=== PATIENT | female | born 1960 | race Caucasian/White ===

== ENCOUNTER 2023-07-20 15:51 | Inpatient (IN) | payer OTHER, SELFPAY ==
--- NOTE | ~2023-07-20 | XR_ITS ---
EXAMINATION: XR KNEE, LEFT CLINICAL INFORMATION: Knee pain COMPARISON: None available. TECHNIQUE: Four views of the left knee. FINDINGS: No joint effusion, fracture, dislocation or destructive process. There is spurring off the superior and inferior anterior patella. There is mild spurring off the medial femoral condyle. XR/XR knee LT 3V IMPRESSION: Degenerative changes noted but no fracture.
--- NOTE | ~2023-07-20 | XR_ITS ---
EXAMINATION: XR CHEST CLINICAL INFORMATION: Shortness of breath COMPARISON: None available. TECHNIQUE: Frontal view of the chest was obtained. FINDINGS: Poor inspiratory effort. Given AP upright portable technique lungs are considered grossly clear. Heart size borderline with normal caliber pulmonary vessels. XR/XR chest 1V IMPRESSION: No active disease given technical limitations.
--- NOTE | ~2023-07-20 | US_ITS ---
EXAMINATION: US VENOUS ULTRASOUND WITH DOPPLER LOWER EXTREMITY, BILATERAL CLINICAL INFORMATION: Bilateral lower extremity edema COMPARISON: Ultrasound venous Doppler lower extremity bilateral from 07/20/2023 TECHNIQUE: Ultrasound of the deep veins is performed from the hip to the calf with compression sonography and color and pulse Doppler assessment. Spectral analysis with color-flow imaging is performed. Technical limitations. FINDINGS: FINDINGS: Respiratory variation, normal compression and vessel patency are noted throughout the lower extremities. The visualized common femoral vein, femoral vein, profunda femoral vein, popliteal vein and midcalf posterior tibial venous segments show no evidence of deep vein thrombosis bilaterally. Peroneal veins not well visualized bilaterally. There is no Franco's cyst. US/US venous duplex LE BI IMPRESSION: 1. No DVT demonstrated in the bilateral lower extremities. 2. Peroneal veins not well visualized bilaterally.
--- NOTE | ~2023-07-20 | US_ITS ---
EXAMINATION: US VENOUS ULTRASOUND WITH DOPPLER LOWER EXTREMITY, BILATERAL CLINICAL INFORMATION: Bilateral lower extremity pain. COMPARISON: None available. TECHNIQUE: Ultrasound of the deep veins is performed from the hip to the calf with compression sonography and color and pulse Doppler assessment. Spectral analysis with color-flow imaging is performed. FINDINGS: The exam is limited secondary to body habitus and edema. RIGHT: There is normal venous compression and respiratory variation and augmented flow. The visualized common femoral vein, superficial femoral vein, profunda femoral vein, popliteal vein, and the trifurcation region shows no evidence of deep venous thrombosis. There is no significant popliteal fossa cyst. LEFT: There is normal venous compression and respiratory variation and augmented flow. The visualized common femoral vein, superficial femoral vein, profunda femoral vein, popliteal vein, and the trifurcation region shows no evidence of deep venous thrombosis. There is no significant popliteal fossa cyst. If the patient's symptoms persist, followup ultrasound in 5 days 7 days might be of value to exclude proximal propagation from a non-visualized calf vein. US/US venous duplex LE BI IMPRESSION: No DVT demonstrated in the bilateral lower extremity.
[2023-07-20 16:22] VITALS: BP 141/88; BP 146/98; PULSE 79; PULSE 84; RESP 18; TEMP 36.6; O2SAT 98; O2SAT 99; BMI 60.9
--- NOTE | 2023-07-20 16:23 | ECG_ITS ---
Test Reason : LT LEG PAIN Blood Pressure : / mmHG Vent. Rate : 085 BPM Atrial Rate : 085 BPM P-R Int : 168 ms QRS Dur : 090 ms QT Int : 384 ms P-R-T Axes : 038 013 046 degrees QTc Int : 456 ms Normal sinus rhythm Possible Anterior infarct , age undetermined Abnormal ECG No previous ECGs available Referred By: Chris Gutiérrez Electronically Signed By:BASHIR LOZANO MD
--- NOTE | 2023-07-20 16:31 | ED_ITS ---
HPI - General Adult General Chief complaint: Extremity Injury, Lower Stated complaint: severe leg pain, unable to walk,N/V,Weakness Time Seen by Provider: 07/20/23 16:08 Source: patient, EMS and RN notes reviewed Mode of arrival: EMS Limitations: no limitations History of Present Illness HPI narrative: 63-year-old female with past medical history significant for COPD, obesity, depression presents for evaluation of ?depression. ? Patient states that the primary reason for visit to the ER is depression She states that she has had increasing depression for the last 3 months since before She denies any specific inciting incident but describes difficulties dealing with her mother's worsening dementia Patient states that she reports increased fatigue and hopelessness related to her depression She also complains of bilateral knee pain left greater than right for quite some time which seems to be worse over the last 3 days Denies any trauma to the area She reports that her legs seem more swollen than usual She has a history of PE 1 year ago, but denies current anticoagulation use Denies any fevers, chills Related Data Allergies Allergy/AdvReac Type Severity Reaction Status Date / Time morphine [MORPHINE] Allergy Unknown ITCHY Unverified 02/13/20 16:32 Review of Systems 2 Constitutional: Constitutional: Denies chills, Denies fever(s), Denies frequent falls and Reports weakness Eyes: Eyes: Denies blurry vision ENT: Denies sore throat Cardiovascular: Cardiovascular: Denies chest pain and Denies dyspnea Respiratory: Respiratory: Denies cough and Denies dyspnea Gastrointestinal: Gastrointestinal: Denies abdominal pain, Denies nausea and Denies vomiting Musculoskeletal: Musculoskeletal: Denies back pain, Reports arthralgias, Reports joint swelling and Reports limited range of motion Integumentary/Breasts: Skin/Breast: Denies rash Neurologic: Denies frequent falls and Reports weakness Psychiatric: Psychiatric: Reports depression, Reports hopelessness, Reports panic attacks and Denies suicidal ideation PMFSH Social History Social History Smoked in Last 30 Days: No Use of substances other than those prescribed or required for medical reasons: No Advance Directives: Yes Advance Directives Information Provided: No Advance Directives on File: No Patient : No Physical Exam ED Vital Signs: Vital Signs - 24 hr 07/20/23 16:22 07/20/23 21:43 Temperature 98 F Pulse Rate 79 91 Respiratory Rate 18 16 Blood Pressure 141/88 H 134/59 L Pulse Oximetry 98 95 Oxygen Delivery Method Nasal Cannula Nasal Cannula Oxygen Flow Rate 2 BMI result Body Mass Index 60.9 Const Other: Resting comfortably in a supine position. She has significant central obesity General: healthy appearing, comfortable, no acute distress, alert and awake Nutritional Appearance: well nourished and obese Orientation/consciousness: patient oriented x3 HENMT Head: Yes normocephalic and Yes atraumatic Eyes Eyelids: Yes eyelids normal Conjunctivae: conjunctivae normal Sclerae: sclerae normal Corneas: corneas normal Pupils: Equal, round and reactive pupils present EOM: EOMs intact bilaterally Neck Neck: Yes full ROM Resp Effort & Inspection: normal respiratory effort, able to speak in complete sentences, no audible wheezes and not labored Auscultation: clear to auscultation bilaterally Cardio Other: 2+ bilateral lower extremity pitting edema Rate: regular rate Rhythm: regular rhythm GI Inspection: No distended Palpation (GI): Soft to palpation, not firm, nontender, no guarding and not rigid Skin Other: Patient has chronic discoloration of lower extremities bilaterally, no beefy red erythema, no open wounds, no drainage. General skin exam: elasticity normal Neuro General: patient oriented x3 Cranial nerves: Yes Equal, round and reactive pupils present and Yes Bilaterally intact EOM present Cognition (Neuro): normal cognition Extrem Other: Tenderness with manipulation of the left knee without obvious deformity. Course Reevaluation(s) Reevaluation #1: Patient has medically cleared from the leg pain perspective. There is no evidence of DVT. She has arthritis of the knee. She was seen by the care team will be a voluntary inpatient bed search for her depression. She has not suicidal Time: 23:04 Medications Administered Discontinued Medications Generic Name Dose Route Start Last Admin Trade Name Edgarq PRN Reason Stop Dose Admin Acetaminophen 650 mg 07/20/23 21:37 07/20/23 21:41 Acetaminophen 325 Mg Tablet PO 07/20/23 21:38 650 mg ONCE ONE Administration Medical Decision Making Medical Decision Making MDM Narrative: 63-year-old female presents for evaluation of depression as well as acute on chronic left knee pain. She denies any shortness of breath, chest pain, abdominal pain, nausea, vomiting. Will workup her leg pain and leg swelling prior to evaluation my care team. The patient notes that though she has had increasing depression she has not suicidal. She states that her PCP increased 1 of her medications for depression about 1 month ago, but she does not know the name of the medication. Given her history of DVT/PE not currently anticoagulated, we will get ultrasounds of lower extremities to rule out DVT. Will get x-rays of the left knee. Her vital signs are currently stable. No evidence of infectious process. Differential Diagnosis Differential Diagnoses: The differential diagnosis associated with the presentation includes Depression Major depressive disorder Suicidal ideation Leg pain Hopelessness DVT Osteoarthritis CHF Lab Data MDM Lab Attestation statement: I reviewed the patient's lab results. No leukocytosis. The patient has increased hemoglobin hematocrit to 17.4 and 53.3 respectively. Normal platelet count. No significant electrolyte abnormalities. 07/20/23 19:41 07/20/23 19:41 Labs: Lab Results 07/20/23 Range/Units 19:41 WBC 7.6 (4.8-10.8) X10*3/uL RBC 6.19 H (4.20-5.50) X10*6/uL Hgb 17.4 H (12.0-16.0) g/dl Hct 53.3 H (37.0-47.0) % MCV 86.1 (80.0-98.0) fL MCH 28.1 (27.0-33.0) pg MCHC 32.6 (31.0-35.0) g/dl RDW 16.2 H (11.0-16.0) % Plt Count 195 (160-400) X10*3/uL MPV 10.7 (9.4-12.3) fL Immature Gran % (Auto) 0.1 (0.0-0.4) % Neut % (Auto) 45.6 (45-73) % Lymph % (Auto) 42.5 H (20-40) % Placer % (Auto) 8.4 (2-11) % Eos % (Auto) 2.8 (0-4) % Baso % (Auto) 0.6 (0-2) % Lymph # (Auto) 3.3 (1.2-4.9) X10*3/uL Placer # (Auto) 0.7 (0.1-1.2) X10*3/uL Eos # (Auto) 0.2 (0.0-0.4) X10*3/uL Baso # (Auto) 0.1 (0.0-0.2) X10*3/uL Abs Immat Gran (auto) 0.01 (0.00-0.03) X10*3/uL Absolute Neuts (auto) 3.5 (2.0-8.3) x10*3/uL Absolute Nucleated RBC 0.000 (0.0-0.012) X10*3/uL Nucleated RBC % (auto) 0.0 (0.0-0.2) /100WBC Smear Tech's Comments VERIFIED PT 11.0 L (11.1-13.3) SEC INR 0.9 (0.9-1.1) Sodium 143 (135-145) mmol/L Potassium 4.8 (3.3-5.1) mmol/L Chloride 102 (96-108) mmol/L Carbon Dioxide 32 H (22-29) mmol/L Anion Gap 14 (12-20) BUN 12 (9-16) mg/dL Creatinine 0.70 (0.5-1.4) mg/dL Estim Creat Clear Calc 121.8 Estimated GFR > 60 Random Glucose 95 (60-115) mg/dL Calcium 9.5 (8.4-10.2) mg/dL Total Bilirubin 0.9 (0.0-1.0) mg/dL AST 38 H (5-31) U/L ALT 27 (0-31) U/L Alkaline Phosphatase 134 H (39-117) U/L B-Natriuretic Peptide 11 (<100) pg/mL Total Protein 7.2 (6.5-8.0) g/dL Albumin 3.9 (3.5-5.0) g/dL Urine Color Yellow Urine Appearance Clear Urine pH 7.0 (5.0-9.0) Ur Specific [place] 1.010 (1.005-1.025) Urine Protein Negative (Neg-Trace) mg/dL Urine Glucose (UA) Negative (Negative) mg/dL Urine Ketones Negative (Negative) mg/dL Urine Blood Negative (Negative) Urine Nitrite Negative (Negative) Ur Leukocyte Esterase Negative (Negative) Salicylates < 5.0 L (15-30) mg/dL Urine Opiates Screen Not Detected (Not Detect) Urine Fentanyl Screen Not Detected (Not Detect) Acetaminophen 3 (<30) mcg/mL Ur Barbiturates Screen Not Detected (Not Detect) Ur Phencyclidine Scrn Not Detected (Not Detect) Ur Amphetamines Screen Not Detected (Not Detect) U Benzodiazepines Scrn Not Detected (Not Detect) Urine Cocaine Screen Not Detected (Not Detect) U Marijuana (THC) Screen Not Detected (Not Detect) Ethyl Alcohol < 10 mg/dL COVID-19 (SELIN) Negative (Negative) COVID-19 Clin Com See Note Discharge Plan Discharge Clinical Impression: Depression, Arthralgia of knee, left Patient Disposition: Still a Patient
--- NOTE | 2023-07-20 18:44 | PC.NURSE ---
pt off floor to u/s
--- NOTE | 2023-07-20 19:45 | MHC.CARE ---
Evaluation from [facility] received; put in chart. Pt is a voluntary inpatient bedsearch.
[2023-07-20 19:50] LABS: Appearance Urine Clear; Color Urine Yellow; Glucose Urine UA Negative (Negative); Leukocyte Esterase Urine Negative (Negative); Nitrite Urine Negative (Negative); Urine Blood Negative (Negative); Urine Ketones Negative (Negative); Urine Protein Negative (Neg-Trace)
[2023-07-20 19:51] LABS: Basophils Absolute Auto 0.1 X10*3/uL (0.0-0.2); Neutrophils Percent Auto 45.6 % (45-73); PLT CLUMP 1; SCAN SMEAR FLAG 1
[2023-07-20 19:53] LABS: Basophils Percent Auto 0.6 % (0-2); Eosinophils Absolute Auto 0.2 X10*3/uL (0.0-0.4); Eosinophils Percent Auto 2.8 % (0-4); Hematocrit 53.3 % (37.0-47.0); Hemoglobin 17.4 g/dl (12.0-16.0); Imm Gran Abs Auto 0.01 X10*3/uL (0.00-0.03); Imm Gran Pct Auto 0.1 % (0.0-0.4); Lymphocytes Absolute Auto 3.3 X10*3/uL (1.2-4.9); Lymphocytes Percent Auto 42.5 % (20-40); MANUAL DIFF FLAG SCAN; Mean Corpuscular HGB Conc 32.6 g/dl (31.0-35.0); Mean Corpuscular Hemoglobin 28.1 pg (27.0-33.0); Mean Corpuscular Volume 86.1 fL (80.0-98.0); Mean Platelet Volume 10.7 fL (9.4-12.3); Monocytes Absolute Auto 0.7 X10*3/uL (0.1-1.2); Monocytes Percent Auto 8.4 % (2-11); Neutrophils Absolute Auto 3.5 x10*3/uL (2.0-8.3); Red Blood Count 6.19 X10*6/uL (4.20-5.50); Red Cell Distribution Width 16.2 % (11.0-16.0)
[2023-07-20 19:58] LABS: Amphetamine Screen Urine Not Detected (Not Detect); Barbiturates, Urine Not Detected (Not Detect); Benzodiazepines Screen Urine Not Detected (Not Detect); Cannabinoid Screen Urine Not Detected (Not Detect); Cocaine Screen Urine Not Detected (Not Detect); Fentanyl, urine Not Detected (Not Detect); Opiate Screen Urine Not Detected (Not Detect); Phencyclidine Screen Urine Not Detected (Not Detect)
[2023-07-20 19:59] LABS: INTERNATIONAL NORM RATIO 0.9 (0.9-1.1)
[2023-07-20 20:03] LABS: COVID-19 Test Negative (Negative); IDNOW Serial# 55D5AD1C
[2023-07-20 20:09] LABS: Acetaminophen LAB 3 mcg/mL (<30); Alanine Aminotransferase 27 U/L (0-31); Albumin Level 3.9 g/dL (3.5-5.0); Alkaline Phosphatase 134 U/L (39-117); Anion Gap 14 (12-20); Aspartate Amino Transferase 38 U/L (5-31); Bilirubin Total 0.9 mg/dL (0.0-1.0); Blood Urea Nitrogen 12 mg/dL (9-16); Calcium 9.5 mg/dL (8.4-10.2); Carbon Dioxide 32 mmol/L (22-29); Chloride 102 mmol/L (96-108); Creatinine Clr Calc Pharmacy 121.8; Estimated Glomerular Filt Rate > 60; Ethanol < 10 mg/dL; Glucose Random 95 mg/dL (60-115); Platelet Count 195 X10*3/uL (160-400); Potassium 4.8 mmol/L (3.3-5.1); SLIDE REVIEW VERIFIED; Salicylate < 5.0 mg/dL (15-30); Sodium 143 mmol/L (135-145); Total Protein 7.2 g/dL (6.5-8.0); White Blood Count 7.6 X10*3/uL (4.8-10.8)
[2023-07-20 20:28] LABS: B Type Natriuretic Peptide 11 pg/mL (<100)
--- NOTE | 2023-07-20 21:37 | PC.NURSE ---
Spoke with pt's daughter who states she was told pt has a room ready upstairs. I explained to daughter that pt will likely be with us overnight and bed search will continue in the morning. Daughter is agreeable to plan.
[2023-07-20] MEDS: Acetaminophen 325 MG TABLET 650 MG PO (21:41)
[2023-07-20 21:43] VITALS: BP 134/59; PULSE 91; RESP 16; O2SAT 95
--- NOTE | 2023-07-20 22:53 | PC.NURSE ---
Pt assisted to recliner with assist from Marj JEONG. red socks applied prior to transfer, given call light and oxygen. Cell phone in close reach.
--- NOTE | 2023-07-21 00:17 | MHC.EDTECH ---
patient requested ambien and to have purewick reattatched. Patient also reclined in recliner requesting to sleep in recliner. ROMAINE riley
[2023-07-21] MEDS: Mirtazapine 7.5 MG TABLET PO ×2 (00:50→20:36)
[2023-07-21] MEDS: traMADoL HCL 50 MG TABLET PO (00:50)
[2023-07-21] MEDS: Zolpidem Tartrate 5 MG TABLET 10 MG PO ×2 (00:50→20:35)
[2023-07-21] MEDS: Tiotropium Bromide 2.5 mcg 1 PUFF/2.5 MCG MIST.INHAL INHALE (08:04)
[2023-07-21] MEDS: Fluticasone/Vilanterol 200/25 BLST.W.DEV 1 PUFF INHALE (08:04)
[2023-07-21 08:08] VITALS: PULSE 99; RESP 20; O2SAT 98
[2023-07-21 09:19] VITALS: BP 137/79; PULSE 96; RESP 18; TEMP 36.5; O2SAT 98
[2023-07-21 09:23] VITALS: BP 139/64; PULSE 105; RESP 22; TEMP 37.6; O2SAT 94
[2023-07-21] MEDS: Losartan Potassium 50 MG TABLET PO (09:50)
[2023-07-21] MEDS: NaPROXEN 500 MG TABLET PO ×2 (09:50→20:34)
[2023-07-21] MEDS: Montelukast Sodium 10 MG TABLET PO (09:50)
[2023-07-21] MEDS: Famotidine 20 MG TABLET 40 MG PO (09:50)
[2023-07-21] MEDS: LORazepam 0.5 MG TABLET PO ×2 (09:50→20:34)
[2023-07-21] MEDS: DULoxetine HCl 60 MG CAPSULE.DR 120 MG PO (09:51)
--- NOTE | 2023-07-21 09:54 | PC.NURSE ---
this RN resumed care of pt at this time. vss and up to date at this time. pt resides on 2L via NC which is pt's baseline d/t hx of asthma and COPD. no sob/wob noted. pt c/o 12/05 pain in the left knee. pt states pain increases w/ weight bearing/movement. pt pt stating that feels depressed but is unable to pinpoint why. states that it is hard to say and that she feels like she just wants to run away. pt denies SI/HI. medication administered per provider order. respirations even and unlabored. pt sitting upright eating breakfast in recliner. plan of care ongoing at this time. call valero placed within reach.
[2023-07-21] MEDS: Fluticasone Propionate Nasal 16 GM SPRAY 2 SPRAY NOSTRIL-B (13:03)
[2023-07-21 13:05] VITALS: BP 140/80; PULSE 79; RESP 16; TEMP 36.6; O2SAT 99
--- NOTE | 2023-07-21 13:31 | PC.NURSE ---
vss and up to date at this time. pt remains on 2L via NC. resting comfortably on NC in no apparent distress. no sob/wob noted. pt continues to rest in recliner/repositioned to comfort. pt waiting to be admitted as inpatient at this time. plan of care ongoing. call valero placed within reach.
--- NOTE | 2023-07-21 13:56 | PC.NURSE ---
report given to ROMAINE Lopez on M5. RN states that they will retrieve pt from ED shortly.
[2023-07-21 18:00] VITALS: BP 136/75; PULSE 99; RESP 18; TEMP 36.7; O2SAT 94
--- NOTE | 2023-07-21 18:49 | PC.ADMIT ---
Maggie is a 60yr old bi-lingual lithuanian female who presents to from [facility] medical floor for Depression which she reports has been really bad since April. She reports she has had Depression for many years with her last admission to [facility] 7 years ago, never at [facility]. She denies SI/HI or anxiety. She presents in a wheelchair and reports the last time she walked was 5 days ago. She is morbidly obese with DM. She states 7/10 bi lateral knee pain at rest and 10/10 with standing. She states that she takes Dilaudid to help with her pain. RN contacted her pharmacy who didnt have a hx for her of Dilaudid. She reported that she got the script from [facility]. Covering Hospitalist aware. She has had surgery on her left leg although cannot state what kind of surgery or for what and grimaces when you touch her ankles. She has pvd and bi lateral lower extremities are discolored. She has multiple medical issues including COPD on chronic 2L oxygen and needs respiratory support in the form of CPAP/BiPap or AVAPs at night. Her daughter Yuliana is her JAVA SOFTWARE ARCHITECT and takes care of many of her needs and is available to give information that the patient cannot give. The patient also has help from a care team at [facility] for her ADL's. The patient is very pleasant, calm, and cooperative but cannot provide alot of information about her health care history or needs. She does good family and health care support including a pcp, therapist and psychiatrist. She is a Jehovah Witness and has good spiritual support. Maggie reports that her mother has dementia and that her sister is currenty taking care of her mother. They have been on difficult terms and Maggie reports being in the middle much of the time. Maggies brother also has medical problems and Maggie herself has many medical issues she is dealing with. All of this has culminated in her admission here today with overwhelming depression and is open to the experience and getting help.
[2023-07-21] MEDS: Acetaminophen 325 MG TABLET 650 MG PO (20:35)
[2023-07-21] MEDS: Atorvastatin Calcium 40 MG TABLET PO (21:00)
[2023-07-21 21:01] LABS: Glucose, Whole Blood 88 mg/dL (60-115)
[2023-07-22 00:13] LABS: Glucose, Whole Blood 131 mg/dL (60-115)
--- NOTE | 2023-07-22 02:30 | PC.NURSE ---
Patient is admitted to from [facility] for Depression. Patient has multiple co-morbidites including morbid obesity, COPD, Asthma, DM, Fibromyalgia and PVD. She also has a history of cellulitis according to her daughter Yuliana. Patient is on chronic 2L oxygen, reports she is on respiratory support at night but didnt know if it was cpap or bipap. She also reports taking Dilaudid for left knee pain that was reportedly prescribed by [facility]. She states she hasnt walked in 5 days due to her knee pain that is a 7/10 at rest and a 10/10 when she stands on it. Covering hospitalist aware. Accommodations were made in Group room A on for a medical bed because patient cannot tolerate laying flat. Her gait was assessed when patient had to use the bathroom. She is able to stand and ambulate with a walker short distances on 3L oxygen. She ambulated from group room A across the koch to the bathroom with walker and standby assist and was steady on her feet and tolerated it well. She urinated and had a bowel movement. She was requesting to shower but there was no female staff available at the time. Her skin needs to be better assessed for a fungal infection d/t odor. Her blood sugar was 88 an hour after eating and then 133 about 4 hours after eating. She reports a hx of low blood sugar at night and in the morning especially if she doesnt eat a snack before bedtime. Her right lower extremity is more swollen than her left. She reports previous surgery on her left leg although unable to state what was wrong or what procedure she had. She has help at home from [facility] with health aids coming to help her with ADL's. She is currently sleeping and comfortable, no acute events tonight.
[2023-07-22 07:49] LABS: Estimated Average Glucose 143 mg/dL; Hemoglobin A1c % 6.6 % (<6.0)
[2023-07-22 08:01] LABS: Cholesterol 98 mg/dL (<200); HDL Cholesterol 33 mg/dL (>40); LDL Cholesterol Calculated 55 mg/dL (<100); Triglycerides 54 mg/dL (<150)
[2023-07-22 08:19] LABS: Free T4 (Free Thyroxine) 0.77 ng/dL (0.71-1.85); Thyroid Stimulating Hormone 1.64 uIU/mL (0.32-4.0)
[2023-07-22 08:27] VITALS: BP 133/69; PULSE 90; RESP 18; TEMP 36.1; O2SAT 97
[2023-07-22 08:30] LABS: Folate 9.2 ng/mL (> or = 4.0); Vitamin B12 347 pg/mL (200-900)
[2023-07-22] MEDS: Montelukast Sodium 10 MG TABLET PO (08:56)
[2023-07-22] MEDS: Famotidine 20 MG TABLET 40 MG PO (08:56)
[2023-07-22] MEDS: LORazepam 0.5 MG TABLET PO ×2 (08:56→22:38)
[2023-07-22] MEDS: Losartan Potassium 50 MG TABLET PO (08:56)
[2023-07-22] MEDS: NaPROXEN 500 MG TABLET PO ×2 (08:56→22:37)
[2023-07-22] MEDS: DULoxetine HCl 60 MG CAPSULE.DR 120 MG PO (09:52)
[2023-07-22] MEDS: Fluticasone Propionate Nasal 16 GM SPRAY 2 SPRAY NOSTRIL-B (12:40)
[2023-07-22] MEDS: Fluticasone/Vilanterol 200/25 BLST.W.DEV 1 PUFF INHALE (12:40)
[2023-07-22] MEDS: Tiotropium Bromide 2.5 mcg 1 PUFF/2.5 MCG MIST.INHAL INHALE (12:40)
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
[2023-07-22] MEDS: Acetaminophen 325 MG TABLET 650 MG PO ×2 (15:04→22:34)
[2023-07-22] MEDS: polyethylene glycoL 3350 17 GM POWD.PACK PO (15:10)
[2023-07-22 16:00] VITALS: BP 139/63; PULSE 92; TEMP 36.2; O2SAT 96
[2023-07-22 17:12] LABS: Glucose, Whole Blood 142 mg/dL (60-115)
[2023-07-22] MEDS: Zolpidem Tartrate 5 MG TABLET 10 MG PO (22:35)
[2023-07-22] MEDS: Atorvastatin Calcium 40 MG TABLET PO (22:36)
[2023-07-22] MEDS: Mirtazapine 7.5 MG TABLET PO (22:39)
[2023-07-22 23:18] VITALS: PULSE 92; RESP 18; O2SAT 96
[2023-07-23] MEDS: Acetaminophen 325 MG TABLET 650 MG PO ×3 (06:13→23:02)
[2023-07-23 08:00] VITALS: BP 145/63; PULSE 83; RESP 18; TEMP 36.1; O2SAT 97
[2023-07-23] MEDS: Fluticasone/Vilanterol 200/25 BLST.W.DEV 1 PUFF INHALE (09:07)
[2023-07-23] MEDS: Tiotropium Bromide 2.5 mcg 1 PUFF/2.5 MCG MIST.INHAL INHALE (09:07)
[2023-07-23] MEDS: DULoxetine HCl 60 MG CAPSULE.DR 120 MG PO (09:08)
[2023-07-23] MEDS: Fluticasone Propionate Nasal 16 GM SPRAY 2 SPRAY NOSTRIL-B (09:08)
[2023-07-23] MEDS: Montelukast Sodium 10 MG TABLET PO (09:08)
[2023-07-23] MEDS: NaPROXEN 500 MG TABLET PO (09:08)
[2023-07-23] MEDS: Losartan Potassium 50 MG TABLET PO (09:08)
[2023-07-23] MEDS: Famotidine 20 MG TABLET 40 MG PO (09:09)
[2023-07-23] MEDS: LORazepam 0.5 MG TABLET PO ×2 (09:09→23:03)
[2023-07-23] MEDS: bisacodyL 5 MG TABLET.DR 10 MG PO (11:12)
[2023-07-23] MEDS: Capsaicin 0.025% Cream 60 GM TUBE 1 APPL TOPICAL (14:25)
--- NOTE | 2023-07-23 14:52 | P.PNPSI_ITS ---
Subjective Subjective Date of Service: 07/23/23 Reason For Visit: Depression Interim History: Patient seen and discussed. Continues to complain of knee pain. Asked for Dilaudid as she takes it when she is admitted to the hospital. Said she had some at home. On review PDMP Dilaudid not showing up for the last 2 years. Says her mood is showing signs of improvement. In the late afternoon shows RN her left LE is swollen and red below the knee. Reports to RN past history of cellulitis when her leg gets discolored like that. Review of Systems Constitutional: Denies chills, Denies fever(s), Denies frequent falls and Reports weakness Eyes: Denies blurry vision Denies sore throat Cardiovascular: Denies chest pain and Denies dyspnea Respiratory: Denies cough and Denies dyspnea Gastrointestinal: Denies abdominal pain, Denies nausea and Denies vomiting Musculoskeletal: Denies back pain, Reports arthralgias, Reports joint swelling and Reports limited range of motion Skin/Breast: Denies rash Denies frequent falls and Reports weakness Psychiatric: Reports depression, Reports hopelessness, Reports panic attacks and Denies suicidal ideation Mental Status Exam Mental Status Exam Patient Appearance: Well Grooomed (obese, sitting in wheelchair. ) Patient Orientation: Person, Place, Time and Situation Level of Consciousness: Awake, Appropriate and Follows Commands Patient Behavior: Appropriate Mood Description: Calm, Depressed and Sad Affect Description: Calm, Depressed and Sad Patient Cognition Impaired: No Ability to Follow Directions: Excellent Speech Pattern: Clear Memory Description: Intact Diagnostics Vital Signs (24Hr): Vital Signs - 24 hr 07/22/23 16:00 07/22/23 23:18 07/23/23 08:00 Temperature 97.2 F 97 F Pulse Rate 92 83 Respiratory Rate 18 18 Blood Pressure 139/63 145/63 H Pulse Oximetry 96 97 Oxygen Delivery Method Room Air Nasal Cannula Oxygen Flow Rate 2 BMI result Body Mass Index 60.9 Labs 07/20/23 19:41 07/20/23 19:41 Labs: Laboratory Results - last 48 hr 07/21/23 07/21/23 07/22/23 20:55 23:57 07:27 POC Glucose 88 131 H Estimat Average Glucose 143 Hemoglobin A1c % 6.6 H Magnesium 2.0 Triglycerides 54 Cholesterol 98 LDL Cholesterol, Calc 55 HDL Cholesterol 33 L Vitamin B12 347 Folate 9.2 TSH 1.64 Free T4 0.77 07/22/23 17:08 POC Glucose 142 H Estimat Average Glucose Hemoglobin A1c % Magnesium Triglycerides Cholesterol LDL Cholesterol, Calc HDL Cholesterol Vitamin B12 Folate TSH Free T4 Imaging Radiology Impressions: ITS Impressions Chest X-Ray 07/20/23 16:40 IMPRESSION: No active disease given technical limitations. Knee X-Ray 07/20/23 16:40 IMPRESSION: Degenerative changes noted but no fracture. Venous Duplex 07/20/23 18:47 IMPRESSION: No DVT demonstrated in the bilateral lower extremity. Medications Medications Current Medications Acetaminophen (Acetaminophen 325 Mg Tablet) 650 mg PO Q6H PRN PRN Reason: Headache/Pain Mild Scale (1-3) Last Admin: 07/23/23 06:13 Dose: 650 mg Al Hydroxide/Mg Hydroxide (Magnesium Hydrox/Alum Hydrox 30 Ml Oral.Susp) 30 ml PO Q6H PRN PRN Reason: Heartburn/Nausea Albuterol Sulfate (Albuterol Sulfate 90 Mcg 8 Gm Inhaler) 2 puff INHALE Q6H PRN PRN Reason: wheezing Atorvastatin Calcium (Atorvastatin Calcium 40 Mg Tablet) 40 mg PO BEDTIME [facility] Last Admin: 07/22/23 22:36 Dose: 40 mg Bisacodyl (Bisacodyl 5 Mg Tablet.Dr) 10 mg PO DAILY PRN PRN Reason: Constipation Last Admin: 07/23/23 11:12 Dose: 5 mg Capsaicin (Capsaicin 0.025% Cream 60 Gm Tube) 1 appl TOPICAL TID PRN PRN Reason: Pain, Moderate(Pain Scale 4-6) Last Admin: 07/23/23 14:25 Dose: 1 appl Duloxetine HCl (Duloxetine Hcl 60 Mg Capsule.) 120 mg PO DAILY [facility] Last Admin: 07/23/23 09:08 Dose: 120 mg Famotidine (Famotidine 20 Mg Tablet) 40 mg PO DAILY [facility] Last Admin: 07/23/23 09:09 Dose: 40 mg Fluticasone Propionate (Fluticasone Propionate Nasal 16 Gm [place]) 2 spray NOSTRIL-B DAILY [facility] Last Admin: 07/23/23 09:08 Dose: 2 spray Fluticasone/Vilanterol (Fluticasone/Vilanterol 200/25 Blst.W.Dev) 1 puff INHALE RDAILY [facility] Last Admin: 07/23/23 09:07 Dose: 1 puff Hydroxyzine HCl (Hydroxyzine Hcl 25 Mg Tablet) 25 mg PO Q6H PRN PRN Reason: Anxiety Lorazepam (Lorazepam 0.5 Mg Tablet) 0.5 mg PO BID [facility] Last Admin: 07/23/23 09:09 Dose: 0.5 mg Losartan Potassium (Losartan Potassium 50 Mg Tablet) 50 mg PO DAILY [facility]; Protocol Last Admin: 07/23/23 09:08 Dose: 50 mg Magnesium Hydroxide (Milk Of Magnesia 30 Ml Oral.Susp) 30 ml PO DAILY PRN PRN Reason: Constipation Mirtazapine (Mirtazapine 7.5 Mg Tablet) 7.5 mg PO BEDTIME [facility] Last Admin: 07/22/23 22:39 Dose: 7.5 mg Montelukast Sodium (Montelukast Sodium 10 Mg Tablet) 10 mg PO DAILY [facility] Last Admin: 07/23/23 09:08 Dose: 10 mg Naproxen (Naproxen 500 Mg Tablet) 500 mg PO BID [facility] Last Admin: 07/23/23 09:08 Dose: 500 mg Non-Formulary Medication (Semaglutide [Ozempic]) 1 mg SUBCUT QWEEK [facility] Non-Formulary Medication (Milnacipran [Savella]) 50 mg PO BID [facility] Polyethylene Glycol (Polyethylene Glycol 3350 17 Gm Powd.Pack) 17 gm PO DAILY [facility] Last Admin: 07/23/23 09:25 Dose: Not Given Tiotropium [place] (Tiotropium [place] 2.5 Mcg 1 Puff/2.5 Mcg Mist.Inhal) 1 puff INHALE DAILY [facility] Last Admin: 07/23/23 09:07 Dose: 1 puff Trazodone HCl (Trazodone Hcl 50 Mg Tablet) 50 mg PO BEDTIME MRX1 PRN PRN Reason: Insomnia Zolpidem Tartrate (Zolpidem Tartrate 5 Mg Tablet) 10 mg PO BEDTIME [facility] Last Admin: 07/22/23 22:35 Dose: 10 mg Allergies Allergies Allergy/AdvReac Type Severity Reaction Status Date / Time morphine [MORPHINE] Allergy Unknown ITCHY Verified 07/21/23 13:01 Assessment & Plan Assessment & Plan (1) Depression: Status: Acute Code(s): F32.A - Depression, unspecified (2) History of surgery on lower extremity: Status: Acute Code(s): Z98.890 - Other specified postprocedural states (3) Diabetes mellitus, type 2: Status: Acute Code(s): E11.9 - Type 2 diabetes mellitus without complications (4) Asthma: Status: Acute Code(s): J45.909 - Unspecified asthma, uncomplicated (5) Oxygen dependent: Status: Acute Code(s): Z99.81 - Dependence on supplemental oxygen (6) Continuous positive airway pressure dependent: Status: Acute Code(s): Z99.89 - Dependence on other enabling machines and devices (7) COPD (chronic obstructive pulmonary disease): Status: Acute Code(s): J44.9 - Chronic obstructive pulmonary disease, unspecified (8) Arthralgia of knee, left: Status: Acute Code(s): M25.562 - Pain in left knee (9) Obesity: Status: Acute Code(s): E66.9 - Obesity, unspecified Plan - Admit to inpatient psychiatry - CV - Collateral information from family and providers. - Milieu treatment and group therapy. - Medications: No changes in antidepressants for now pending collaterals from family and outside providers. - Social work evaluation. - Disposition planning. Patient reports family were trying to get her into a respite program but need further clarification from family about the nature of the program. 07/23: Collaterals from family. Ask hospitalist to see for left HELDER and discoloration. Reason for continued inpatient stay Substantial Risk for: harm to self, inability to function, rapid decompensation and med/psych decompensation Time Spent With Patient Time: Total time managing care of this patient today ____ minutes.
[2023-07-23] MEDS: Lidocaine 4 % Patch ADH..PATCH 1 PATCH TRANSDERMA (16:22)
[2023-07-23 16:58] VITALS: BP 123/58; PULSE 98; RESP 18; TEMP 36.3; O2SAT 94
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
[2023-07-23] MEDS: Zolpidem Tartrate 5 MG TABLET 10 MG PO (23:02)
[2023-07-23] MEDS: Mirtazapine 7.5 MG TABLET PO (23:03)
[2023-07-23] MEDS: Atorvastatin Calcium 40 MG TABLET PO (23:03)
[2023-07-24] VITALS: PULSE 98; RESP 20; O2SAT 94
[2023-07-24] MEDS: Acetaminophen 325 MG TABLET 650 MG PO ×3 (05:57→23:12)
[2023-07-24 08:30] VITALS: BP 142/65; PULSE 85; RESP 18; TEMP 36.1; O2SAT 94
[2023-07-24] MEDS: Fluticasone Propionate Nasal 16 GM SPRAY 2 SPRAY NOSTRIL-B (09:12)
[2023-07-24] MEDS: Fluticasone/Vilanterol 200/25 BLST.W.DEV 1 PUFF INHALE (09:13)
[2023-07-24] MEDS: Lidocaine 4 % Patch ADH..PATCH 1 PATCH TRANSDERMA (09:13)
[2023-07-24] MEDS: LORazepam 0.5 MG TABLET PO ×2 (09:13→23:09)
[2023-07-24] MEDS: Losartan Potassium 50 MG TABLET PO (09:13)
[2023-07-24] MEDS: DULoxetine HCl 60 MG CAPSULE.DR 120 MG PO (09:13)
[2023-07-24] MEDS: Celecoxib 200 MG CAPSULE PO ×2 (09:13→23:09)
[2023-07-24] MEDS: Tiotropium Bromide 2.5 mcg 1 PUFF/2.5 MCG MIST.INHAL INHALE (09:13)
[2023-07-24] MEDS: Montelukast Sodium 10 MG TABLET PO (09:13)
[2023-07-24] MEDS: Famotidine 20 MG TABLET 40 MG PO (09:14)
[2023-07-24 17:14] VITALS: BP 120/57; PULSE 90; RESP 17; TEMP 36.3; O2SAT 95
--- NOTE | 2023-07-24 17:24 | P.PNPSI_ITS ---
Subjective Subjective Date of Service: 07/24/23 Reason For Visit: Depression Subjective Notes: Conditional Voluntary Healthcare Proxy: Yes Guardianship: No Medical Problems Affecting Mental Status: Yes Interim History: Pt on one to one. She requests an immediate transfer to [facility]. She reports several complaints with care and inconsistency from her plan at her home. She declines treatment for depression at this time. Reports she needs a medical psychiatric unit. Reports concern about BLE criculation and pain in her legs. States she has been here since and has received no treatment. [facility] ER team did not allow her to see a medical MD nor psych MD. States she met with psychiatry on Monday, had no O2 on , no medical bed, just a stretcher . States she believes she was given false information about services. States she was denied Dilaudid (Morphine allergy) and current Tylenol not effective. Reports pain not managed. Reports hx of COVID with 12-14 day in pt stay with readmit, with diminshed respiratory quality, increasing respiratory risk. Care discussed with daughter/PATIENT CARE COORDINATOR, Yuliana. Full med review. Yuliana will bring Trulicity and Ozempic. Yuliana reports pt's legs are sensitive to cellulitis and she believes her skin could crack at any time. Yuliana will assess when she visits [facility]. Concerns have been presented to psychiatric admin team along with pt's request. Pt's legs are not warm, no weeping of fluid. She states that at times when she is in bed they become warm and she becomes anxious about developing infection. She presents with good eye contact, alert, full range of affect, attentive and clear. She declines all intervention except transfer today. Medication Compliance: Yes Side effects from medications: No Attending Groups: No Review of Systems Acute medical concerns: No Medical Review of Systems: unchanged Review of Systems Cardiovascular: Reports dyspnea (post covid at times, has O2) and Reports dyspnea on exertion Respiratory: Reports dyspnea (post covid at times, has O2) and Reports dyspnea on exertion Comments: erythema, chronic venous stasis. No evidence of cellulitis this afternoon. Mental Status Exam Mental Status Exam Patient Appearance: Well Grooomed (obese, sitting in wheelchair. ) Patient Orientation: Person, Place, Time and Situation Level of Consciousness: Awake and Appropriate Patient Behavior: Appropriate, Talkative and Good Eye Contact Mood Description: Calm and Apprehensive Affect Description: Calm and Apprehensive Patient Cognition Impaired: No Ability to Follow Directions: Excellent Speech Pattern: Clear and Spontaneous Speech Memory Description: Intact Hallucinations: None Delusions: Not Present Thought Content: positive for Perseveration, positive for Suicidal Ideation (denies) and positive for Homicidal Ideation (denies) Judgement: Good Diagnostics Vital Signs (24Hr): Vital Signs - 24 hr 07/24/23 00:00 07/24/23 08:30 07/24/23 17:14 Temperature 97.0 F 97.3 F Pulse Rate 85 90 Respiratory Rate 20 18 17 Blood Pressure 142/65 H 120/57 L Pulse Oximetry 94 95 Oxygen Delivery Method Room Air Room Air BMI result Body Mass Index 60.9 Labs 07/20/23 19:41 07/20/23 19:41 Imaging Radiology Impressions: ITS Impressions Chest X-Ray 07/20/23 16:40 IMPRESSION: No active disease given technical limitations. Knee X-Ray 07/20/23 16:40 IMPRESSION: Degenerative changes noted but no fracture. Venous Duplex 07/20/23 18:47 IMPRESSION: No DVT demonstrated in the bilateral lower extremity. Medications Medications Current Medications Acetaminophen (Acetaminophen 325 Mg Tablet) 650 mg PO Q6H PRN PRN Reason: Headache/Pain Mild Scale (1-3) Last Admin: 07/24/23 16:06 Dose: 650 mg Al Hydroxide/Mg Hydroxide (Magnesium Hydrox/Alum Hydrox 30 Ml Oral.Susp) 30 ml PO Q6H PRN PRN Reason: Heartburn/Nausea Albuterol Sulfate (Albuterol Sulfate 90 Mcg 8 Gm Inhaler) 2 puff INHALE Q6H PRN PRN Reason: wheezing Atorvastatin Calcium (Atorvastatin Calcium 40 Mg Tablet) 40 mg PO BEDTIME [facility] Last Admin: 07/23/23 23:03 Dose: 40 mg Bisacodyl (Bisacodyl 5 Mg Tablet.) 10 mg PO DAILY PRN PRN Reason: Constipation Last Admin: 07/23/23 11:12 Dose: 5 mg Capsaicin (Capsaicin 0.025% Cream 60 Gm Tube) 1 appl TOPICAL TID PRN PRN Reason: Pain, Moderate(Pain Scale 4-6) Last Admin: 07/23/23 14:25 Dose: 1 appl Celecoxib (Celecoxib 200 Mg Capsule) 200 mg PO BID [facility] Last Admin: 07/24/23 09:13 Dose: 200 mg Duloxetine HCl (Duloxetine Hcl 60 Mg Capsule.) 120 mg PO DAILY [facility] Last Admin: 07/24/23 09:13 Dose: 120 mg Famotidine (Famotidine 20 Mg Tablet) 40 mg PO DAILY [facility] Last Admin: 07/24/23 09:14 Dose: 40 mg Fluticasone Propionate (Fluticasone Propionate Nasal 16 Gm [place]) 2 spray NOSTRIL-B DAILY [facility] Last Admin: 07/24/23 09:12 Dose: 2 spray Fluticasone/Vilanterol (Fluticasone/Vilanterol 200/25 Blst.W.Dev) 1 puff INHALE RDAILY [facility] Last Admin: 07/24/23 09:13 Dose: 1 puff Hydroxyzine HCl (Hydroxyzine Hcl 25 Mg Tablet) 25 mg PO Q6H PRN PRN Reason: Anxiety Lidocaine (Lidocaine 4 % Patch Adh..Patch) 1 patch TRANSDERMA DAILY PRN; Protocol PRN Reason: Pain, Moderate(Pain Scale 4-6) Last Admin: 07/24/23 09:13 Dose: 1 patch Lorazepam (Lorazepam 0.5 Mg Tablet) 0.5 mg PO BID [facility] Last Admin: 07/24/23 09:13 Dose: 0.5 mg Losartan Potassium (Losartan Potassium 50 Mg Tablet) 50 mg PO DAILY [facility]; Protocol Last Admin: 07/24/23 09:13 Dose: 50 mg Magnesium Hydroxide (Milk Of Magnesia 30 Ml Oral.Susp) 30 ml PO DAILY PRN PRN Reason: Constipation Mirtazapine (Mirtazapine 7.5 Mg Tablet) 7.5 mg PO BEDTIME [facility] Last Admin: 07/23/23 23:03 Dose: 7.5 mg Montelukast Sodium (Montelukast Sodium 10 Mg Tablet) 10 mg PO DAILY [facility] Last Admin: 07/24/23 09:13 Dose: 10 mg Non-Formulary Medication (Semaglutide [Ozempic]) 1 mg SUBCUT QWEEK [facility] Non-Formulary Medication (Milnacipran [Savella]) 50 mg PO BID [facility] Polyethylene Glycol (Polyethylene Glycol 3350 17 Gm Powd.Pack) 17 gm PO DAILY [facility] Last Admin: 07/24/23 09:22 Dose: Not Given Tiotropium Trezevant (Tiotropium Trezevant 2.5 Mcg 1 Puff/2.5 Mcg Mist.Inhal) 1 puff INHALE DAILY [facility] Last Admin: 07/24/23 09:13 Dose: 1 puff Trazodone HCl (Trazodone Hcl 50 Mg Tablet) 50 mg PO BEDTIME MRX1 PRN PRN Reason: Insomnia Zolpidem Tartrate (Zolpidem Tartrate 5 Mg Tablet) 10 mg PO BEDTIME [facility] Last Admin: 07/23/23 23:02 Dose: 10 mg Allergies Allergies Allergy/AdvReac Type Severity Reaction Status Date / Time morphine [MORPHINE] Allergy Unknown ITCHY Verified 07/21/23 13:01 Assessment & Plan Assessment & Plan (1) Depression: Status: Acute Code(s): F32.A - Depression, unspecified Plan - Admit to inpatient psychiatry - CV - Collateral information from family and providers. - Milieu treatment and group therapy. - Medications: No changes in antidepressants for now pending collaterals from family and outside providers. - Social work evaluation. - Disposition planning. Patient reports family were trying to get her into a respite program but need further clarification from family about the nature of the program. 07/23: Collaterals from family. Ask hospitalist to see for left HELDER and discoloration. 07/24: Pt declines psychiatric treatment at this time. Requests [facility] transfer. Administrative team notified. Patient educated on: medication risk/benefits, therapeutic strategies and medical condition Informed Consent: understands and further education needed Reason for continued inpatient stay Substantial Risk for: rapid decompensation and med/psych decompensation Time Spent With Patient Time: Total time managing care of this patient today ____ minutes.
[2023-07-24 22:00] VITALS: BP 120/57; PULSE 90; RESP 18; TEMP 36.3; O2SAT 95
[2023-07-24 22:23] LABS: Glucose, Whole Blood 120 mg/dL (60-115)
[2023-07-24] MEDS: Atorvastatin Calcium 40 MG TABLET PO (23:09)
[2023-07-24] MEDS: Mirtazapine 7.5 MG TABLET PO (23:09)
[2023-07-24] MEDS: Zolpidem Tartrate 5 MG TABLET 10 MG PO (23:09)
[2023-07-25 08:01] LABS: Glucose, Whole Blood 96 mg/dL (60-115)
[2023-07-25] MEDS: Fluticasone Propionate Nasal 16 GM SPRAY 2 SPRAY NOSTRIL-B (08:33)
[2023-07-25] MEDS: Tiotropium Bromide 2.5 mcg 1 PUFF/2.5 MCG MIST.INHAL INHALE (08:33)
[2023-07-25] MEDS: Fluticasone/Vilanterol 200/25 BLST.W.DEV 1 PUFF INHALE (08:33)
[2023-07-25] MEDS: LORazepam 0.5 MG TABLET PO ×2 (08:36→22:47)
[2023-07-25] MEDS: Losartan Potassium 50 MG TABLET PO (08:36)
[2023-07-25] MEDS: Montelukast Sodium 10 MG TABLET PO (08:36)
[2023-07-25] MEDS: Celecoxib 200 MG CAPSULE PO ×3 (08:36→22:47)
[2023-07-25 08:39] VITALS: BP 137/65; PULSE 83; RESP 18; TEMP 36.2; O2SAT 92
[2023-07-25] MEDS: Famotidine 20 MG TABLET 40 MG PO (08:49)
--- NOTE | 2023-07-25 09:55 | HO.PSYCHPN ---
Subjective Subjective Date of Service: 07/25/23 Reason For Visit: Depression Subjective Notes: Conditional Voluntary Healthcare Proxy: No Guardianship: No Medical Problems Affecting Mental Status: No Interim History: Pt, family, and child care development specialist Mary Anne continue to request transfer to [facility]. Pt reports not being comfortable with medical care, being promised services in the ER which were not received and being unsatisfied with not being admitted to medicine with psychiatric consult. Also not satisfied with pain mgt. regime. Request faxed to Dr. Levy of [facility] [phone] per recommendation of administrative team requesting transfer. Pt continues to decline psychiatric medication interventions at this time. Discussed possible Lamictal trial to address mood, pain. Concern expressed to pt regarding Cymbalta/Savella/Mirtazapine load and risk for Serotonin Syndrome. Cymbalta decreased to 60 mg daily. Messages left for psychiatrist, Dr. Hudson [phone], Therapist Lennie [phone] and PCP at [facility], [facility] [phone]. Discussed meds with [facility], they will send med list on 07/26. Care reviewed with daughter x 2 via phone. Pt remains on one to one. Medication Compliance: Yes Side effects from medications: No Attending Groups: No Review of Systems Acute medical concerns: Yes COPD, Obesity, OA, CHF, PARAG, DVT Hx, PE Hx. Arthritis, DM, Asthma, O2 Dependence, Chronic Venous Stasis Medical Review of Systems: unchanged Review of Systems Review of Systems Knee pain, OA, Mental Status Exam Mental Status Exam Patient Appearance: Appropriate Patient Orientation: Person, Place, Time and Situation Level of Consciousness: Alert Patient Behavior: Talkative, Cooperative, Anxious, Fearful, Fatigued and Good Eye Contact Mood Description: Depressed and Angry Affect Description: Flat Patient Cognition Impaired: No Ability to Follow Directions: Good Speech Pattern: Spontaneous Speech Memory Description: Episodic Impaired Hallucinations: None Delusions: Not Present Thought Process: Rumination Thought Content: positive for Perseveration and positive for Suicidal Ideation (denies) Depressive Symptoms: Increased Anxiety Judgement: Good Diagnostics Vital Signs (24Hr): Vital Signs - 24 hr 07/24/23 17:14 07/24/23 22:00 07/25/23 08:39 Temperature 97.3 F 97.3 F 97.2 F Pulse Rate 90 90 83 Respiratory Rate 17 18 18 Blood Pressure 120/57 L 120/57 L 137/65 Pulse Oximetry 95 95 92 Oxygen Delivery Method Nasal Cannula Room Air Room Air Oxygen Flow Rate 2 BMI result Body Mass Index 60.9 Labs 07/20/23 19:41 07/20/23 19:41 Labs: Laboratory Results - last 48 hr 07/24/23 07/25/23 22:18 07:58 POC Glucose 120 H 96 Imaging Radiology Impressions: ITS Impressions Chest X-Ray 07/20/23 16:40 IMPRESSION: No active disease given technical limitations. Knee X-Ray 07/20/23 16:40 IMPRESSION: Degenerative changes noted but no fracture. Venous Duplex 07/20/23 18:47 IMPRESSION: No DVT demonstrated in the bilateral lower extremity. Medications Medications Current Medications Acetaminophen (Acetaminophen 325 Mg Tablet) 650 mg PO Q6H PRN PRN Reason: Headache/Pain Mild Scale (1-3) Last Admin: 07/24/23 23:12 Dose: 650 mg Al Hydroxide/Mg Hydroxide (Magnesium Hydrox/Alum Hydrox 30 Ml Oral.Susp) 30 ml PO Q6H PRN PRN Reason: Heartburn/Nausea Albuterol Sulfate (Albuterol Sulfate 90 Mcg 8 Gm Inhaler) 2 puff INHALE Q6H PRN PRN Reason: wheezing Atorvastatin Calcium (Atorvastatin Calcium 40 Mg Tablet) 40 mg PO BEDTIME [facility] Last Admin: 07/24/23 23:09 Dose: 40 mg Bisacodyl (Bisacodyl 5 Mg Tablet.) 10 mg PO DAILY PRN PRN Reason: Constipation Last Admin: 07/23/23 11:12 Dose: 5 mg Capsaicin (Capsaicin 0.025% Cream 60 Gm Tube) 1 appl TOPICAL TID PRN PRN Reason: Pain, Moderate(Pain Scale 4-6) Last Admin: 07/23/23 14:25 Dose: 1 appl Celecoxib (Celecoxib 200 Mg Capsule) 200 mg PO BID [facility] Last Admin: 07/25/23 08:36 Dose: 200 mg Duloxetine HCl (Duloxetine Hcl 60 Mg Capsule.) 120 mg PO DAILY [facility] Last Admin: 07/25/23 09:26 Dose: Not Given Famotidine (Famotidine 20 Mg Tablet) 40 mg PO DAILY [facility] Last Admin: 07/25/23 08:49 Dose: 40 mg Fluticasone Propionate (Fluticasone Propionate Nasal 16 Gm [place]) 2 spray NOSTRIL-B DAILY [facility] Last Admin: 07/25/23 08:33 Dose: 2 spray Fluticasone/Vilanterol (Fluticasone/Vilanterol 200/25 Blst.W.Dev) 1 puff INHALE RDAILY [facility] Last Admin: 07/25/23 08:33 Dose: 1 puff Hydroxyzine HCl (Hydroxyzine Hcl 25 Mg Tablet) 25 mg PO Q6H PRN PRN Reason: Anxiety Lidocaine (Lidocaine 4 % Patch Adh..Patch) 1 patch TRANSDERMA DAILY PRN; Protocol PRN Reason: Pain, Moderate(Pain Scale 4-6) Last Admin: 07/24/23 09:13 Dose: 1 patch Lorazepam (Lorazepam 0.5 Mg Tablet) 0.5 mg PO BID [facility] Last Admin: 07/25/23 08:36 Dose: 0.5 mg Losartan Potassium (Losartan Potassium 50 Mg Tablet) 50 mg PO DAILY [facility]; Protocol Last Admin: 07/25/23 08:36 Dose: 50 mg Magnesium Hydroxide (Milk Of Magnesia 30 Ml Oral.Susp) 30 ml PO DAILY PRN PRN Reason: Constipation Mirtazapine (Mirtazapine 7.5 Mg Tablet) 7.5 mg PO BEDTIME [facility] Last Admin: 07/24/23 23:09 Dose: 7.5 mg Montelukast Sodium (Montelukast Sodium 10 Mg Tablet) 10 mg PO DAILY [facility] Last Admin: 07/25/23 08:36 Dose: 10 mg Non-Formulary Medication (Semaglutide [Ozempic]) 1 mg SUBCUT QWEEK [facility] Patient Own ( Trulicity 4.5 Mg/0.5 Ml 0.5 Ml) 0.5 ml SUBCUT Q7D [facility] Last Admin: 07/25/23 08:46 Dose: 0.5 ml Pt Own Med (Savella (50 Mg)) 50 mg PO BID [facility] Last Admin: 07/25/23 08:45 Dose: 50 mg Polyethylene Glycol (Polyethylene Glycol 3350 17 Gm Powd.Pack) 17 gm PO DAILY [facility] Last Admin: 07/25/23 08:56 Dose: Not Given Tiotropium [place] (Tiotropium [place] 2.5 Mcg 1 Puff/2.5 Mcg Mist.Inhal) 1 puff INHALE DAILY [facility] Last Admin: 07/25/23 08:33 Dose: 1 puff Trazodone HCl (Trazodone Hcl 50 Mg Tablet) 50 mg PO BEDTIME MRX1 PRN PRN Reason: Insomnia Zolpidem Tartrate (Zolpidem Tartrate 5 Mg Tablet) 10 mg PO BEDTIME [facility] Last Admin: 07/24/23 23:09 Dose: 10 mg Allergies Allergies Allergy/AdvReac Type Severity Reaction Status Date / Time morphine [MORPHINE] Allergy Unknown ITCHY Verified 07/21/23 13:01 Assessment & Plan Assessment & Plan (1) Depression: Status: Acute Code(s): F32.A - Depression, unspecified Plan - Admit to inpatient psychiatry - CV - Collateral information from family and providers. - Milieu treatment and group therapy. - Medications: No changes in antidepressants for now pending collaterals from family and outside providers. - Social work evaluation. - Disposition planning. Patient reports family were trying to get her into a respite program but need further clarification from family about the nature of the program. 07/23: Collaterals from family. Ask hospitalist to see for left HELDER and discoloration. 07/24: Pt declines psychiatric treatment at this time. Requests [facility] transfer. Administrative team notified. 07/25: Continues to decline psychiatric intervention. Collateral contacts initiated with PCP, Psychiatrist, Therapist. Discussed with daughter. Application sent to [facility] for consideration. Patient educated on: therapeutic strategies Informed Consent: understands Reason for continued inpatient stay Substantial Risk for: rapid decompensation Time Spent With Patient Time: Total time managing care of this patient today ____ minutes.
--- NOTE | 2023-07-25 11:44 | P.CONHOSP_ITS ---
History of Present Illness Data of Consult Service Date: 07/25/23 Requesting physician: Giselle Ram Primary Care Provider: curry RUSHING Reason for consult: medical H&P 63 year old female with history of htn, uncontrolled type 2 diabetes, gerd/gastritis, depression, unspecified psychosis, hld, oa, ckd stage 3, tobacco dependence admitted to geriatric psychiatry [place] [facility] with consult placed to hospitalist service for medical H&P. Review of Systems 2 Review of Systems: General: No fevers, malaise, unintentional weight loss HEENT: No blurred vision, diplopia. No sore throat, nasal congestion, rhinorrhea, sinus pain, ear pain Cardiovascular: No chest pain, palpitations, or leg edema Respiratory: No shortness of breath, wheezing, cough GI: No abdominal pain, nausea, vomiting, diarrhea, constipation, melena, hematochezia : No dysuria, hematuria, increased urinary frequency, decreased urinary output MSK: No myalgia, back pain Neuro: No headaches, weakness, paresthesias Skin: No rashes or lesions FOR[facility]LY [facility] Medical History (Updated 07/22/23 @ 19:47 by Henok Wetzel MD) Arthralgia of knee, left Depression Oxygen dependent Continuous positive airway pressure dependent Asthma COPD (chronic obstructive pulmonary disease) Peripheral vascular disease Hyperglycemia Diabetes mellitus, type 2 Surgical History (Updated 07/22/23 @ 19:47 by Henok Wetzel MD) History of surgery on lower extremity Social History Household Members: None Housing: House Do you presently have visiting nurse or other home services: [facility] Patient Tobacco Use Status: Never used Tobacco Smoked in Last 30 Days: No e-Cigarette/Vaping Use: Never Used Patient Interested in Nicotine Replacement: No Second Hand Smoke Exposure: No Use of substances other than those prescribed or required for medical reasons: No Currently Displaying Signs/Symptoms of Drug Intoxication Withdrawal: No Any prior treatment program specific to substance use: No Have you been hit, kicked, punched, or otherwise hurt by someone within the past year? If so, by whom?: No Do you feel safe in your current relationship?: No Is there a partner from a previous relationship who is making you feel unsafe now?: No Are you made to feel afraid or neglected: No [facility] Practices: Jehovah Witness Advance Directives: Yes Advance Directives Information Provided: No Advance Directives on File: No Do you have thoughts of harming others: None Do you have a plan to hurt others: No Plan Recently lost weight without trying: No Eating poorly because of decreased appetite: No Nutrition Risks: No Nutritional Risk Patient : No : No Poor oral hygiene: No Sexual orientation: Straight/Heterosexual Meds Allergies Allergy/AdvReac Type Severity Reaction Status Date / Time morphine [MORPHINE] Allergy Unknown ITCHY Verified 07/21/23 13:01 Active Medications: Current Medications Acetaminophen (Acetaminophen 325 Mg Tablet) 650 mg PO Q6H PRN PRN Reason: Headache/Pain Mild Scale (1-3) Last Admin: 07/24/23 23:12 Dose: 650 mg Al Hydroxide/Mg Hydroxide (Magnesium Hydrox/Alum Hydrox 30 Ml Oral.Susp) 30 ml PO Q6H PRN PRN Reason: Heartburn/Nausea Albuterol Sulfate (Albuterol Sulfate 90 Mcg 8 Gm Inhaler) 2 puff INHALE Q6H PRN PRN Reason: wheezing Atorvastatin Calcium (Atorvastatin Calcium 40 Mg Tablet) 40 mg PO BEDTIME [facility] Last Admin: 07/24/23 23:09 Dose: 40 mg Bisacodyl (Bisacodyl 5 Mg Tablet.Dr) 10 mg PO DAILY PRN PRN Reason: Constipation Last Admin: 07/23/23 11:12 Dose: 5 mg Capsaicin (Capsaicin 0.025% Cream 60 Gm Tube) 1 appl TOPICAL TID PRN PRN Reason: Pain, Moderate(Pain Scale 4-6) Last Admin: 07/23/23 14:25 Dose: 1 appl Celecoxib (Celecoxib 200 Mg Capsule) 200 mg PO BID [facility] Last Admin: 07/25/23 08:36 Dose: 200 mg Famotidine (Famotidine 20 Mg Tablet) 40 mg PO DAILY [facility] Last Admin: 07/25/23 08:49 Dose: 40 mg Fluticasone Propionate (Fluticasone Propionate Nasal 16 Gm [place]) 2 spray NOSTRIL-B DAILY [facility] Last Admin: 07/25/23 08:33 Dose: 2 spray Fluticasone/Vilanterol (Fluticasone/Vilanterol 200/25 Blst.W.Dev) 1 puff INHALE RDAILY [facility] Last Admin: 07/25/23 08:33 Dose: 1 puff Hydroxyzine HCl (Hydroxyzine Hcl 25 Mg Tablet) 25 mg PO Q6H PRN PRN Reason: Anxiety Lidocaine (Lidocaine 4 % Patch Adh..Patch) 1 patch TRANSDERMA DAILY PRN; Protocol PRN Reason: Pain, Moderate(Pain Scale 4-6) Last Admin: 07/24/23 09:13 Dose: 1 patch Lorazepam (Lorazepam 0.5 Mg Tablet) 0.5 mg PO BID [facility] Last Admin: 07/25/23 08:36 Dose: 0.5 mg Losartan Potassium (Losartan Potassium 50 Mg Tablet) 50 mg PO DAILY [facility]; Protocol Last Admin: 07/25/23 08:36 Dose: 50 mg Magnesium Hydroxide (Milk Of Magnesia 30 Ml Oral.Susp) 30 ml PO DAILY PRN PRN Reason: Constipation Mirtazapine (Mirtazapine 7.5 Mg Tablet) 7.5 mg PO BEDTIME [facility] Last Admin: 07/24/23 23:09 Dose: 7.5 mg Montelukast Sodium (Montelukast Sodium 10 Mg Tablet) 10 mg PO DAILY [facility] Last Admin: 07/25/23 08:36 Dose: 10 mg Non-Formulary Medication (Semaglutide [Ozempic]) 1 mg SUBCUT QWEEK [facility] Patient Own ( Trulicity 4.5 Mg/0.5 Ml 0.5 Ml) 0.5 ml SUBCUT Q7D [facility] Last Admin: 07/25/23 08:46 Dose: 0.5 ml Pt Own Med (Savella (50 Mg)) 50 mg PO BID [facility] Last Admin: 07/25/23 08:45 Dose: 50 mg Polyethylene Glycol (Polyethylene Glycol 3350 17 Gm Powd.Pack) 17 gm PO DAILY [facility] Last Admin: 07/25/23 08:56 Dose: Not Given Tiotropium [place] (Tiotropium [place] 2.5 Mcg 1 Puff/2.5 Mcg Mist.Inhal) 1 puff INHALE DAILY [facility] Last Admin: 07/25/23 08:33 Dose: 1 puff Trazodone HCl (Trazodone Hcl 50 Mg Tablet) 50 mg PO BEDTIME MRX1 PRN PRN Reason: Insomnia Zolpidem Tartrate (Zolpidem Tartrate 5 Mg Tablet) 10 mg PO BEDTIME [facility] Last Admin: 07/24/23 23:09 Dose: 10 mg Home Medications Medication Instructions Recorded Confirmed Last Taken Type acetaminophen 500 mg tablet 500 mg PO 07/21/23 07/20/23 History albuterol sulfate 2.5 mg/3 mL 2.5 mg inhalation 07/21/23 07/20/23 History (0.083 %) solution for nebulization albuterol sulfate 90 mcg/actuation 2 puff inhalation Q6H PRN wheezing 07/21/23 07/21/23 07/20/23 History aerosol inhaler (Ventolin HFA) atorvastatin 40 mg tablet 40 mg PO QPM 07/21/23 07/21/23 07/20/23 History diclofenac sodium 1 % topical gel 1 ea topical 07/21/23 07/20/23 History dulaglutide 4.5 mg/0.5 mL mg subcut 07/21/23 07/20/23 History subcutaneous pen injector (Trulicity) duloxetine 60 mg capsule,delayed 120 mg PO DAILY 07/21/23 07/21/23 07/20/23 History release ergocalciferol (vitamin D2) 1,250 1,250 mcg PO QWEEK 07/21/23 07/21/23 07/20/23 History mcg (50,000 unit) capsule famotidine 40 mg tablet 40 mg PO DAILY 07/21/23 07/21/23 07/20/23 History fluticasone propionate 230 2 puff inhalation BID 07/21/23 07/21/23 07/20/23 History mcg-salmeterol 21 mcg/actuation HFA inhaler (Advair HFA) fluticasone propionate 50 2 spray intranasal QAM 07/21/23 07/21/23 07/20/23 History mcg/actuation nasal spray,suspension lorazepam 0.5 mg tablet 0.5 mg PO BID 07/21/23 07/21/23 07/20/23 History losartan 50 mg tablet 50 mg PO DAILY 07/21/23 07/21/23 07/20/23 History meloxicam 15 mg tablet 15 mg PO DAILY 07/21/23 07/21/23 07/20/23 History milnacipran 50 mg tablet (Savella) 50 mg PO BID 07/21/23 07/21/23 07/20/23 History mirtazapine 7.5 mg tablet 7.5 mg PO BEDTIME 07/21/23 07/21/23 07/20/23 History montelukast 10 mg tablet 10 mg PO DAILY 07/21/23 07/21/23 07/20/23 History polyethylene glycol 3350 17 17 g PO DAILY 07/21/23 07/21/23 07/20/23 History gram/dose oral powder (Gavilax) semaglutide 1 mg/dose (4 mg/3 mL) 1 mg subcut QWEEK 07/21/23 07/21/23 07/20/23 History subcutaneous pen injector (Ozempic) tiotropium bromide 18 mcg capsule 1 cap inhalation DAILY 07/21/23 07/21/23 07/20/23 History with inhalation device (Spiriva with HandiHaler) zolpidem 10 mg tablet 10 mg PO BEDTIME 07/21/23 07/21/23 07/20/23 History Physical Exam 2 Vital Signs and Narrative: Vital Signs: Last Vital Signs Temp 97.2 F 07/25/23 08:39 Pulse 83 07/25/23 08:39 Resp 18 07/25/23 08:39 BP 137/65 07/25/23 08:39 Pulse Ox 92 07/25/23 08:39 O2 Del Method Room Air 07/25/23 08:39 O2 Flow Rate 2 07/24/23 17:14 Oxygen Flow Rate 2 07/20/23 16:22 BMI result Body Mass Index 60.9 Results Labs 07/20/23 19:41 07/20/23 19:41 Labs: Laboratory Results - last 24 hr 07/24/23 07/25/23 22:18 07:58 POC Glucose 120 H 96 Assessment and Plan Plan 63 year old female with history of htn, uncontrolled type 2 diabetes, gerd/gastritis, depression, unspecified psychosis, hld, oa, ckd stage 3, tobacco dependence admitted to geriatric psychiatry from [facility] with consult placed to hospitalist service for medical H&P.
[2023-07-25] MEDS: Acetaminophen 325 MG TABLET 650 MG PO ×2 (14:39→22:47)
[2023-07-25] MEDS: hydrOXYzine HCL 25 MG TABLET PO (17:23)
[2023-07-25] MEDS: Lidocaine 4 % Patch ADH..PATCH 1 PATCH TRANSDERMA (17:25)
[2023-07-25 19:50] VITALS: BP 138/64; PULSE 84; RESP 16; TEMP 36.3; O2SAT 93
[2023-07-25] MEDS: Zolpidem Tartrate 5 MG TABLET 10 MG PO (22:46)
[2023-07-25] MEDS: Atorvastatin Calcium 40 MG TABLET PO (22:46)
[2023-07-25] MEDS: Mirtazapine 7.5 MG TABLET PO (22:47)
[2023-07-25 23:43] LABS: Glucose, Whole Blood 141 mg/dL (60-115)
[2023-07-26] MEDS: Lidocaine 4 % Patch ADH..PATCH 1 PATCH TRANSDERMA (04:06)
[2023-07-26] MEDS: Acetaminophen 325 MG TABLET 650 MG PO ×2 (04:07→17:41)
[2023-07-26 08:27] VITALS: BP 146/70; PULSE 91; RESP 18; TEMP 36.3; O2SAT 90
[2023-07-26] MEDS: Fluticasone/Vilanterol 200/25 BLST.W.DEV 1 PUFF INHALE (08:32)
[2023-07-26] MEDS: Tiotropium Bromide 2.5 mcg 1 PUFF/2.5 MCG MIST.INHAL INHALE (08:32)
[2023-07-26] MEDS: Fluticasone Propionate Nasal 16 GM SPRAY 2 SPRAY NOSTRIL-B (08:32)
[2023-07-26] MEDS: Losartan Potassium 50 MG TABLET PO (08:33)
[2023-07-26] MEDS: Celecoxib 200 MG CAPSULE PO ×2 (08:33→23:26)
[2023-07-26] MEDS: Famotidine 20 MG TABLET 40 MG PO (08:33)
[2023-07-26] MEDS: LORazepam 0.5 MG TABLET PO ×2 (08:33→23:26)
[2023-07-26] MEDS: Montelukast Sodium 10 MG TABLET PO (08:33)
[2023-07-26] MEDS: polyethylene glycoL 3350 17 GM POWD.PACK PO (08:42)
[2023-07-26] MEDS: HYDROmorphone HCl 2 MG TABLET 1 MG PO (13:35)
--- NOTE | 2023-07-26 14:23 | PM.EVENT ---
Event Note Date of Service: 07/26/23 Event Note: 63-year-old female with history of COPD/obesity hypoventilation syndrome with chronic hypoxemic respiratory failure on 2 L supplemental O2 at baseline, [id number] type 2 diabetes, hyperlipidemia, PARAG on CPAP, peripheral vascular disease who is morbidly obese with BMI >60 admitted to psychiatry with consult placed to hospitalist service for evalation of ble pain and swelling. She states that she has had pain and swelling chronically in the bilateral lower extremities, without any acute worsening. She does say that her L knee has been very painful x1 week. Denies known injury but states ambulating is difficult now. At home, does not use assistive device to assist with ambulation. Has not been our of bed much in the hospital. States legs do feel slightly better with elevation. On exam, pt has 2+ ble edema with shiny, dusky erythema covering the mid lower legs L>R. No warmth. Left knee without significant swelling. No warmth, erthema, effusion. TTP in suprapatellar and lateral aspect of the knee. Limited active ROM, refuses passive ROM. 1+ pedal pulses, difficult to palpate 2/2 edema A/P: Reviewed xray of the L knee which shows degenerative changes. No acute osseous abnormality or effusion. Venous duplex BLE negative for DVT. Repeat Venous duplex ordered and pending. However, pt's BLE swelling/erythema are chronic without any acute change. Wells score is 0. DVT is very unlikely. Symptoms are likely caused by known and documented peripheral vascular disease. There is no obvious source of patient's acute knee pain evident on available injury. Given lack of injury, do not feel additional imaging is indicated at this time. I would not recommend treating her pain with dilaudid, especially given she has obesity hypoventilation syndrome and is taking benzos and ambien. Opioids will further complicate this and NSAIDs are the more appropriate choice of treatment for the knee pain. Patient is advised that lack of mobility will result in worsening arthritic pain. Chronic BLE Edema: -Recommend compression stockings/wraps for BLE edema. No evidence of cellulitis or infection -Elevate legs. Encourage out of bed -Given there are no acutely worsening symptoms related to ble swelling, would not recommend further intervention. Can await results of venous duplex, but otherwise, recommend Outpt follow up Acute left knee pain: -Recommend discontinuing narcotic pain medication, or at least using lower potency narcotic such as tramadol. In my opinion, there is no role for dilaudid in this patient. Continue NSAIDs -Recommend ice, elevation, compression -Can consider ortho consult for evaluation of knee pain -Encourage OOB, stretching. Consider PT eval Thank you for allowing me to participate in this consult. Signing off at this time. Please do not hesitate to call for further questions or if patient develops any fevers, warmth, elevated WBC or other acute medical issues. Time Spent With Patient Time: Total time managing care of this patient today ____ minutes.
--- NOTE | 2023-07-26 16:31 | P.PNPSI_ITS ---
Subjective Subjective Date of Service: 07/26/23 Reason For Visit: Depression Subjective Notes: Conditional Voluntary Healthcare Proxy: No Guardianship: No Medical Problems Affecting Mental Status: No Interim History: Pt reports pain mgt trial of Celebrex not effective (initiated 07/23). Tw was asked for an extra dosing 07/25 evening which pt received without reported effect. Pt now asks for Dilaudid for arthritis and skin pain-discussed with daughter who confirms pt does receive small doses at times-ordered 1 mg q12 hrs prn. Pt today is willing to discuss psychiatric medications-Lamictal 25 mg initiated, Cymbalta continues at 60 mg. Hospitalist team is scheduled to meet with pt today to review venous stasis, pain, skin care. Wound consult ordered to discuss jennie wrapping, At home, per daughter, pt has a specific skin wrap that she reports is not available in hospital. PCP office sent an updated med list. Message again left for psychiatrist, Dr. Hudson [facility], [facility] have all declined pt transfer today. Discussed with daughter who prefers medical admit with psychiatric consultation for pt's comfort. Pt was informed of these rejections and discussed with daughter as well. She will most likely remain for a few days for care. Medication Compliance: Yes Side effects from medications: No Attending Groups: No Review of Systems Acute medical concerns: Yes Medical Review of Systems: unchanged Review of Systems Review of Systems as noted Mental Status Exam Mental Status Exam Patient Appearance: Appropriate Patient Orientation: Person, Place, Time and Situation Level of Consciousness: Alert Patient Behavior: Talkative, Cooperative, Anxious, Fearful, Fatigued and Good Eye Contact Mood Description: Depressed and Angry Affect Description: Flat Patient Cognition Impaired: No Ability to Follow Directions: Good Speech Pattern: Spontaneous Speech Memory Description: Episodic Impaired Hallucinations: None Delusions: Not Present Thought Process: Rumination Thought Content: positive for Perseveration and positive for Suicidal Ideation (denies) Depressive Symptoms: Increased Anxiety Judgement: Good Diagnostics Vital Signs (24Hr): Vital Signs - 24 hr 07/25/23 19:50 07/26/23 08:27 Temperature 97.4 F 97.4 F Pulse Rate 84 91 Respiratory Rate 16 18 Blood Pressure 138/64 146/70 H Pulse Oximetry 93 90 L Oxygen Delivery Method Room Air Room Air BMI result Body Mass Index 60.9 Labs 07/20/23 19:41 07/20/23 19:41 Labs: Laboratory Results - last 48 hr 07/24/23 07/25/23 07/25/23 22:18 07:58 22:51 POC Glucose 120 H 96 141 H Imaging Radiology Impressions: ITS Impressions Chest X-Ray 07/20/23 16:40 IMPRESSION: No active disease given technical limitations. Knee X-Ray 07/20/23 16:40 IMPRESSION: Degenerative changes noted but no fracture. Venous Duplex 07/20/23 18:47 IMPRESSION: No DVT demonstrated in the bilateral lower extremity. Medications Medications Current Medications Acetaminophen (Acetaminophen 325 Mg Tablet) 650 mg PO Q6H PRN PRN Reason: Headache/Pain Mild Scale (1-3) Last Admin: 07/26/23 04:07 Dose: 650 mg Al Hydroxide/Mg Hydroxide (Magnesium Hydrox/Alum Hydrox 30 Ml Oral.Susp) 30 ml PO Q6H PRN PRN Reason: Heartburn/Nausea Albuterol Sulfate (Albuterol Sulfate 90 Mcg 8 Gm Inhaler) 2 puff INHALE Q6H PRN PRN Reason: wheezing Atorvastatin Calcium (Atorvastatin Calcium 40 Mg Tablet) 40 mg PO BEDTIME [facility] Last Admin: 07/25/23 22:46 Dose: 40 mg Bisacodyl (Bisacodyl 5 Mg Tablet.Dr) 10 mg PO DAILY PRN PRN Reason: Constipation Last Admin: 07/23/23 11:12 Dose: 5 mg Capsaicin (Capsaicin 0.025% Cream 60 Gm Tube) 1 appl TOPICAL TID PRN PRN Reason: Pain, Moderate(Pain Scale 4-6) Last Admin: 07/23/23 14:25 Dose: 1 appl Celecoxib (Celecoxib 200 Mg Capsule) 200 mg PO BID [facility] Last Admin: 07/26/23 08:33 Dose: 200 mg Duloxetine HCl (Duloxetine Hcl 60 Mg Capsule.Dr) 60 mg PO DAILY [facility] Famotidine (Famotidine 20 Mg Tablet) 40 mg PO DAILY [facility] Last Admin: 07/26/23 08:33 Dose: 40 mg Fluticasone Propionate (Fluticasone Propionate Nasal 16 Gm [place]) 2 spray NOSTRIL-B DAILY [facility] Last Admin: 07/26/23 08:32 Dose: 2 spray Fluticasone/Vilanterol (Fluticasone/Vilanterol 200/25 Blst.W.Dev) 1 puff INHALE RDAILY [facility] Last Admin: 07/26/23 08:32 Dose: 1 puff Hydromorphone HCl (Hydromorphone Hcl 2 Mg Tablet) 1 mg PO Q12H PRN PRN Reason: Pain, Moderate(Pain Scale 4-6) Last Admin: 07/26/23 13:35 Dose: 1 mg Hydroxyzine HCl (Hydroxyzine Hcl 25 Mg Tablet) 25 mg PO Q6H PRN PRN Reason: Anxiety Last Admin: 07/25/23 17:23 Dose: 25 mg Lamotrigine (Lamotrigine 25 Mg Tablet) 25 mg PO BEDTIME [facility] Lidocaine (Lidocaine 4 % Patch Adh..Patch) 1 patch TRANSDERMA DAILY PRN; Protocol PRN Reason: Pain, Moderate(Pain Scale 4-6) Last Admin: 07/26/23 04:06 Dose: 1 patch Lorazepam (Lorazepam 0.5 Mg Tablet) 0.5 mg PO BID [facility] Last Admin: 07/26/23 08:33 Dose: 0.5 mg Losartan Potassium (Losartan Potassium 50 Mg Tablet) 50 mg PO DAILY [facility]; Protocol Last Admin: 07/26/23 08:33 Dose: 50 mg Magnesium Hydroxide (Milk Of Magnesia 30 Ml Oral.Susp) 30 ml PO DAILY PRN PRN Reason: Constipation Mirtazapine (Mirtazapine 7.5 Mg Tablet) 7.5 mg PO BEDTIME [facility] Last Admin: 07/25/23 22:47 Dose: 7.5 mg Montelukast Sodium (Montelukast Sodium 10 Mg Tablet) 10 mg PO DAILY [facility] Last Admin: 07/26/23 08:33 Dose: 10 mg Patient Own ( Trulicity 4.5 Mg/0.5 Ml 0.5 Ml) 0.5 ml SUBCUT Q7D [facility] Last Admin: 07/25/23 08:46 Dose: 0.5 ml Pt Own Med (Savella (50 Mg)) 50 mg PO BID [facility] Last Admin: 07/26/23 08:32 Dose: 50 mg Polyethylene Glycol (Polyethylene Glycol 3350 17 Gm Powd.Pack) 17 gm PO DAILY [facility] Last Admin: 07/26/23 08:42 Dose: 17 gm Tiotropium [place] (Tiotropium [place] 2.5 Mcg 1 Puff/2.5 Mcg Mist.Inhal) 1 puff INHALE DAILY [facility] Last Admin: 07/26/23 08:32 Dose: 1 puff Trazodone HCl (Trazodone Hcl 50 Mg Tablet) 50 mg PO BEDTIME MRX1 PRN PRN Reason: Insomnia Zolpidem Tartrate (Zolpidem Tartrate 5 Mg Tablet) 10 mg PO BEDTIME [facility] Last Admin: 07/25/23 22:46 Dose: 10 mg Allergies Allergies Allergy/AdvReac Type Severity Reaction Status Date / Time morphine [MORPHINE] Allergy Unknown ITCHY Verified 07/21/23 13:01 Assessment & Plan Assessment & Plan (1) Depression: Status: Acute Code(s): F32.A - Depression, unspecified Plan 07/26/23: Lamictal 25 mg HS Dilaudid 1 mg q 12hrs prn mod-severe pain d/t arthritis, skin sensitivity Informed Consent: understands Reason for continued inpatient stay Substantial Risk for: med/psych decompensation Time Spent With Patient Time: Total time managing care of this patient today ____ minutes.
[2023-07-26] MEDS: hydrOXYzine HCL 25 MG TABLET PO (17:42)
[2023-07-26 22:00] VITALS: BP 135/65; PULSE 101; RESP 18; TEMP 2.9; TEMP 37.2; O2SAT 93
[2023-07-26 23:20] LABS: Glucose, Whole Blood 103 mg/dL (60-115)
[2023-07-26] MEDS: Mirtazapine 7.5 MG TABLET PO (23:26)
[2023-07-26] MEDS: Zolpidem Tartrate 5 MG TABLET 10 MG PO (23:26)
[2023-07-26] MEDS: Atorvastatin Calcium 40 MG TABLET PO (23:26)
[2023-07-26] MEDS: lamoTRIgine 25 MG TABLET PO (23:27)
[2023-07-27] MEDS: Acetaminophen 325 MG TABLET 650 MG PO ×2 (01:00→13:27)
[2023-07-27] MEDS: Lidocaine 4 % Patch ADH..PATCH 1 PATCH TRANSDERMA (02:42)
[2023-07-27 08:32] LABS: Glucose, Whole Blood 94 mg/dL (60-115)
[2023-07-27] MEDS: Fluticasone/Vilanterol 200/25 BLST.W.DEV 1 PUFF INHALE (09:12)
[2023-07-27] MEDS: Tiotropium Bromide 2.5 mcg 1 PUFF/2.5 MCG MIST.INHAL INHALE (09:12)
[2023-07-27] MEDS: Fluticasone Propionate Nasal 16 GM SPRAY 2 SPRAY NOSTRIL-B (09:13)
[2023-07-27] MEDS: Famotidine 20 MG TABLET 40 MG PO (09:14)
[2023-07-27] MEDS: DULoxetine HCl 60 MG CAPSULE.DR PO (09:14)
[2023-07-27] MEDS: polyethylene glycoL 3350 17 GM POWD.PACK PO (09:14)
[2023-07-27] MEDS: Losartan Potassium 50 MG TABLET PO (09:14)
[2023-07-27] MEDS: LORazepam 0.5 MG TABLET PO (09:14)
[2023-07-27] MEDS: Celecoxib 200 MG CAPSULE PO (09:14)
[2023-07-27] MEDS: Montelukast Sodium 10 MG TABLET PO (09:14)
--- NOTE | 2023-07-27 10:38 | PC.NURSE ---
During morning med pass at 9:15 I encouraged Maggie to attend our therapeutic groups. She stated that she was not interested in attending groups and would not need help with her portable oxygen to support her doing so because she would be leaving today. I asked what the plan was for her discharge because I had not received information about her leaving during morning report. She stated that she had made the decision to leave over night and had not yet alerted her doctor or manager social responsibility. I explained that her current legal status is conditional voluntary and that she needs the agreement of the provider before leaving. I explained the process of a three day notice and that it is helpful as it makes her intent to leave official and that at the provider's discretion she would be able to leave before three business days. She agreed that she would like to sign the three day notice. Returned with three day notice forms in Irish and Yi and signed as a witness after Maggie signed on the Yi form. I advised her that I would immediately make her desires known to her provider and manager social responsibility. Shortly after I let the team know about her intent to leave I received a phone call from Maggie's daughter Yuliana. Yuliana said that she was concerned that Maggie was being advised to sign paperwork while medicated and therefore not fit to sign. She said Maggie had just called to let her know that she did not understand the form that she had just signed. I explained to Yuliana that I provided forms in Irish and Yi and that she read the forms and stated understanding of the content, but surprise that she could not simply leave the hospital when she felt ready to do so. Yuliana reiterated that it was inappropriate to have a 'medicated' patient signing legal documents. I explained that I have been Maggie's nurse for the past three days and that in my professional opinion she was alert and oriented and competent to sign. I reassured her that I did not pressure her to sign anything and explained her legal status and the policies of the unit. I also explained that a three-day notice can be retracted at any time at the sole discretion of the patient and that I would be happy to facilitate that if Maggie requested it. Yuliana asked to speak to Maggie directly again and let Maggie know. She spoke with Yuliana a second time. When she had finished her phone call I returned to her room to ask her if she felt that she understood to 3 day notice form and process. She stated that she had understood the form from the beginning and that her confusion was solely about why she was not able to leave as soon as she wanted. Maggie stated to me that prior to her admission she had be struggling with severe knee pain which prompted her to call crisis. She chose to come to [facility] rather than [facility] where she usually receives care to avoid long wait times. Maggie states that while in the ED he (a male she did not identify) assured her that he was trying to get her into either the 4th or 5th floor but did not explain the difference between the two. She feels that she should have been admitted to the 4th floor. I explained that the 4th floor here is our medical-tele unit and that none of her complaints on admission were problems that would typically result in an admission to that floor. She replied that she had a blood clots. I explained that a history of blood clots without evidence of a current clot is not typically a reason for medical admission. She reiterated that her primary complaint was pain. I explained that while I understand that pain can be debilitating, the triage method that the hospital uses is to focus on the condition that would be considered most life threatening. Due to the risk of suicide, depression will be triaged as a higher priority than even the most severe pain because knee pain cannot result in . Maggie stated that she should have been told her options in more detail as she would have chosen to leave. I explain that I understand her frustration and am glad to be able to provide more information about our processes to prevent this from ever happening in the future. I asked if there was anything else I could do to help and she said that there was not. Throughout all of the interactions and conversations described about with Cristina I was accompanied by Jon Boland, a nurse I am precepting. He has read this note and agrees with my memory of events.
[2023-07-27] MEDS: Ergocalciferol (Vitamin D2) 1,250 MCG CAPSULE 1250 MCG PO (13:27)
--- NOTE | 2023-07-27 13:44 | HO.WOUND ---
Wound Consult: Initial 63yr old?F admitted to [facility] on 07/21/23 - See progress notes and H&P for detailed history.? Wound consult placed for BLE Edema.? Patient agreeable to assessment and photo documentation.? Patient bilateral legs are assessed for venous dermatitis evidence by firm swelling, erythema, hyperpigmentation in the lower leg area, thin dry skin and evidence of old injury noted. +PP noted cool to touch toes bilaterally. Upon entering the room the patients legs were in the dependent position - she reports at home she sleeps in a recliner chair and does not lay fly but that she does elevate her legs throughout the day. She reports she follows with a vascular surgeon from [facility] but is unable to recall the name of the provider she sees. She reports she has had knee pain and swelling in the past and has treated with an orthopedic doctor but can not recall his name either. She reports her daughter plans to make follow up appointments at time of d/c to outpatient ortho and vascular surgery. She reports she does have compression wraps she described to me something like a Jobst farrow wrap but does not recall exactly what they are called and they are not available on the unit as they are at her home. She reports when she wears them consistently she notices a significant decrease in swelling. She was encouraged to apply the compression upon arrival home. The patient was encouraged to walk throughout the day as she reports she only walks twice a day and it is a short distance - she was educated the calf movement will likely benefit her swelling and arthritic pain. Recommendations: 1. Bilateral Lower Legs - No topical interventions needed at this time. Patient encouraged to follow up outpatient with Orthopedic doctor and vascular doctor. Patient encouraged to ambulate throughout the day, lay flat if / when tolerable, elevate lower legs, apply compressions as ordered, limit salt intake and maintain blood glucose within providers recommendations. Re-consult wound care Nurse for wound deterioration or wound changes.
--- NOTE | 2023-07-27 18:52 | PM.PSYDC ---
DS: Providers Provider Date of Service: 07/27/23 Date of admission: 07/21/23 12:59 Date of discharge: 07/27/23 Primary care physician: curry goel Admitting clinician: Henok Wetzel Attending physician on admission: Henok Wetzel Consults: 07/23/23 17:57 Consult to Hospitalist Routine Comment: Consulting Provider: Hospitalist Reason For Exam: Left leg swelling and erythema 07/26/23 12:49 Consult to Hospitalist Routine Comment: ?Compression Rx; Dilaudid prn Consulting Provider: Hospitalist Reason For Exam: BLE Pain; celebrex ineffective, doppler pending 07/26/23 13:05 Consult to Wound Care Routine Reason for consultation: BLE Edema-hx wrap compression rx Attending physician on discharge: Liu Araujo Discharging clinician: Valentina Hodges DS: Diagnosis Discharge Diagnosis (1) Depression: Status: Acute DS: Medications Discharge Medications Home Medications: Home Medications Medication Instructions Recorded Confirmed acetaminophen 500 mg tablet 500 mg PO 07/21/23 albuterol sulfate 2.5 mg/3 mL 2.5 mg inhalation 07/21/23 (0.083 %) solution for nebulization albuterol sulfate 90 mcg/actuation 2 puff inhalation Q6H PRN wheezing 07/21/23 07/21/23 aerosol inhaler (Ventolin HFA) atorvastatin 40 mg tablet 40 mg PO QPM 07/21/23 07/21/23 diclofenac sodium 1 % topical gel 1 ea topical 07/21/23 dulaglutide 4.5 mg/0.5 mL mg subcut 07/21/23 subcutaneous pen injector ([facility]) ergocalciferol (vitamin D2) 1,250 1,250 mcg PO QWEEK 07/21/23 07/21/23 mcg (50,000 unit) capsule famotidine 40 mg tablet 40 mg PO DAILY 07/21/23 07/21/23 fluticasone propionate 230 2 puff inhalation BID 07/21/23 07/21/23 mcg-salmeterol 21 mcg/actuation HFA inhaler (Advair HFA) fluticasone propionate 50 2 spray intranasal QAM 07/21/23 07/21/23 mcg/actuation nasal spray,suspension lorazepam 0.5 mg tablet 0.5 mg PO BID 07/21/23 07/21/23 losartan 50 mg tablet 50 mg PO DAILY 07/21/23 07/21/23 meloxicam 15 mg tablet 15 mg PO DAILY 07/21/23 07/21/23 milnacipran 50 mg tablet (Savella) 50 mg PO BID 07/21/23 07/21/23 mirtazapine 7.5 mg tablet 7.5 mg PO BEDTIME 07/21/23 07/21/23 montelukast 10 mg tablet 10 mg PO DAILY 07/21/23 07/21/23 polyethylene glycol 3350 17 17 g PO DAILY 07/21/23 07/21/23 gram/dose oral powder (Gavilax) tiotropium bromide 18 mcg capsule 1 cap inhalation DAILY 07/21/23 07/21/23 with inhalation device (Spiriva with HandiHaler) zolpidem 10 mg tablet 10 mg PO BEDTIME 07/21/23 07/21/23 Previous Rx's Medication Instructions Recorded duloxetine 60 mg capsule,delayed 60 mg PO DAILY #0 caps 07/27/23 release furosemide 40 mg tablet 40 mg PO DAILY #0 tabs 07/27/23 lamotrigine 25 mg tablet 25 mg PO BEDTIME #30 tabs 07/27/23 Mental Status Exam Mental Status Exam Patient Appearance: Appropriate Patient Orientation: Person, Place, Time and Situation Level of Consciousness: Alert Patient Behavior: Talkative, Cooperative, Fatigued and Good Eye Contact Mood Description: Depressed Affect Description: Flat Patient Cognition Impaired: No Ability to Follow Directions: Good Speech Pattern: Spontaneous Speech Memory Description: Episodic Impaired Hallucinations: None Delusions: Not Present Thought Process: Rumination Thought Content: positive for Perseveration Depressive Symptoms: Increased Anxiety Judgement: Good Data Data Completed and Pending Completed studies during hospitalization [Text1]: 07/20/23 07/21/23 07/21/23 19:41 20:55 23:57 WBC 7.6 RBC 6.19 H Hgb 17.4 H Hct 53.3 H MCV 86.1 MCH 28.1 MCHC 32.6 RDW 16.2 H Plt Count 195 MPV 10.7 Immature Gran % (Auto) 0.1 Neut % (Auto) 45.6 Lymph % (Auto) 42.5 H [place] % (Auto) 8.4 Eos % (Auto) 2.8 Baso % (Auto) 0.6 Lymph # (Auto) 3.3 [place] # (Auto) 0.7 Eos # (Auto) 0.2 Baso # (Auto) 0.1 Abs Immat Gran (auto) 0.01 Absolute Neuts (auto) 3.5 Absolute Nucleated RBC 0.000 Nucleated RBC % (auto) 0.0 Smear Tech's Comments VERIFIED PT 11.0 L INR 0.9 Sodium 143 Potassium 4.8 Chloride 102 Carbon Dioxide 32 H Anion Gap 14 BUN 12 Creatinine 0.70 Estim Creat Clear Calc 121.8 Estimated GFR > 60 POC Glucose 88 131 H Random Glucose 95 Estimat Average Glucose Hemoglobin A1c % Calcium 9.5 Magnesium Total Bilirubin 0.9 AST 38 H ALT 27 Alkaline Phosphatase 134 H B-Natriuretic Peptide 11 Total Protein 7.2 Albumin 3.9 Triglycerides Cholesterol LDL Cholesterol, Calc HDL Cholesterol Vitamin B12 Folate TSH Free T4 Urine Color Yellow Urine Appearance Clear Urine pH 7.0 Ur Specific [place] 1.010 Urine Protein Negative Urine Glucose (UA) Negative Urine Ketones Negative Urine Blood Negative Urine Nitrite Negative Ur Leukocyte Esterase Negative Salicylates < 5.0 L Urine Opiates Screen Not Detected Urine Fentanyl Screen Not Detected Acetaminophen 3 Ur Barbiturates Screen Not Detected Ur Phencyclidine Scrn Not Detected Ur Amphetamines Screen Not Detected U Benzodiazepines Scrn Not Detected Urine Cocaine Screen Not Detected U Marijuana (THC) Screen Not Detected Ethyl Alcohol < 10 COVID-19 (SELIN) Negative COVID-19 Clin Com See Note 07/22/23 07/22/23 07/24/23 07:27 17:08 22:18 WBC RBC Hgb Hct MCV MCH MCHC RDW Plt Count MPV Immature Gran % (Auto) Neut % (Auto) Lymph % (Auto) [place] % (Auto) Eos % (Auto) Baso % (Auto) Lymph # (Auto) [place] # (Auto) Eos # (Auto) Baso # (Auto) Abs Immat Gran (auto) Absolute Neuts (auto) Absolute Nucleated RBC Nucleated RBC % (auto) Smear Tech's Comments PT INR Sodium Potassium Chloride Carbon Dioxide Anion Gap BUN Creatinine Estim Creat Clear Calc Estimated GFR POC Glucose 142 H 120 H Random Glucose Estimat Average Glucose 143 Hemoglobin A1c % 6.6 H Calcium Magnesium 2.0 Total Bilirubin AST ALT Alkaline Phosphatase B-Natriuretic Peptide Total Protein Albumin Triglycerides 54 Cholesterol 98 LDL Cholesterol, Calc 55 HDL Cholesterol 33 L Vitamin B12 347 Folate 9.2 TSH 1.64 Free T4 0.77 Urine Color Urine Appearance Urine pH Ur Specific [place] Urine Protein Urine Glucose (UA) Urine Ketones Urine Blood Urine Nitrite Ur Leukocyte Esterase Salicylates Urine Opiates Screen Urine Fentanyl Screen Acetaminophen Ur Barbiturates Screen Ur Phencyclidine Scrn Ur Amphetamines Screen U Benzodiazepines Scrn Urine Cocaine Screen U Marijuana (THC) Screen Ethyl Alcohol COVID-19 (SELIN) COVID-19 Clin Com 07/25/23 07/25/23 07/26/23 07:58 22:51 22:57 WBC RBC Hgb Hct MCV MCH MCHC RDW Plt Count MPV Immature Gran % (Auto) Neut % (Auto) Lymph % (Auto) [place] % (Auto) Eos % (Auto) Baso % (Auto) Lymph # (Auto) [place] # (Auto) Eos # (Auto) Baso # (Auto) Abs Immat Gran (auto) Absolute Neuts (auto) Absolute Nucleated RBC Nucleated RBC % (auto) Smear Tech's Comments PT INR Sodium Potassium Chloride Carbon Dioxide Anion Gap BUN Creatinine Estim Creat Clear Calc Estimated GFR POC Glucose 96 141 H 103 Random Glucose Estimat Average Glucose Hemoglobin A1c % Calcium Magnesium Total Bilirubin AST ALT Alkaline Phosphatase B-Natriuretic Peptide Total Protein Albumin Triglycerides Cholesterol LDL Cholesterol, Calc HDL Cholesterol Vitamin B12 Folate TSH Free T4 Urine Color Urine Appearance Urine pH Ur Specific [place] Urine Protein Urine Glucose (UA) Urine Ketones Urine Blood Urine Nitrite Ur Leukocyte Esterase Salicylates Urine Opiates Screen Urine Fentanyl Screen Acetaminophen Ur Barbiturates Screen Ur Phencyclidine Scrn Ur Amphetamines Screen U Benzodiazepines Scrn Urine Cocaine Screen U Marijuana (THC) Screen Ethyl Alcohol COVID-19 (SELIN) COVID-19 View Medical Com 07/27/23 08:11 WBC RBC Hgb Hct MCV MCH MCHC RDW Plt Count MPV Immature Gran % (Auto) Neut % (Auto) Lymph % (Auto) [place] % (Auto) Eos % (Auto) Baso % (Auto) Lymph # (Auto) [place] # (Auto) Eos # (Auto) Baso # (Auto) Abs Immat Gran (auto) Absolute Neuts (auto) Absolute Nucleated RBC Nucleated RBC % (auto) Smear Tech's Comments PT INR Sodium Potassium Chloride Carbon Dioxide Anion Gap BUN Creatinine Estim Creat Clear Calc Estimated GFR POC Glucose 94 Random Glucose Estimat Average Glucose Hemoglobin A1c % Calcium Magnesium Total Bilirubin AST ALT Alkaline Phosphatase B-Natriuretic Peptide Total Protein Albumin Triglycerides Cholesterol LDL Cholesterol, Calc HDL Cholesterol Vitamin B12 Folate TSH Free T4 Urine Color Urine Appearance Urine pH Ur Specific [place] Urine Protein Urine Glucose (UA) Urine Ketones Urine Blood Urine Nitrite Ur Leukocyte Esterase Salicylates Urine Opiates Screen Urine Fentanyl Screen Acetaminophen Ur Barbiturates Screen Ur Phencyclidine Scrn Ur Amphetamines Screen U Benzodiazepines Scrn Urine Cocaine Screen U Marijuana (THC) Screen Ethyl Alcohol COVID-19 (SELIN) COVID-19 Clin Com Imaging Diagnostic Imaging Impressions Chest X-Ray 07/20/23 16:40 IMPRESSION: No active disease given technical limitations. Knee X-Ray 07/20/23 16:40 IMPRESSION: Degenerative changes noted but no fracture. Venous Duplex 07/20/23 18:47 IMPRESSION: No DVT demonstrated in the bilateral lower extremity. Venous Duplex 07/26/23 22:05 IMPRESSION: 1. No DVT demonstrated in the bilateral lower extremities. 2. Peroneal veins not well visualized bilaterally. DS: Summary Hospital Course Hospital Course: Admission to adult psychiatry for exacerbation of depressive sx. Pt and family report they were told in the ER that pt would have a medical admission with psychiatric consultation. Pt and family believe the reason for admission was to assess knee pain. food manager Mary Anne from [facility] and family requested a transfer to [facility]. Psychiatric administrative team worked for three days to arrange this however pt was denied transfer by [facility]. Pt signed a three day notice which was held as daughter reports pt did not understand what she had signed. Medications were evaluated, Lamictal initiated, Cymbalta decreased due to risk of serotonin syndrome. Out patient providers were contacted however did not respond to requests for collaboration. Hospitalist and wound care consultations were obtained to address pt's medical needs and requests. Daughter was involved in pt's care and decided to take her home after she was rejected by [facility]. Pt will follow up with PCP and her out patient team after discharge. Status at Discharge Functional status at discharge: wheelchair bound Overall status at discharge: patient is progressing back to baseline Time Spent with Patient Time attestation: Total time managing care of this patient today ____ minutes. Time spent: Less than 30 minutes Discharge Plan Discharge Anticipated Discharge Date/Time: 07/27/23 13:00 Patient Disposition: Home, Self-Care Discharge Diagnosis: Depression Bilateral knee pain, left greater than right Left knee arthralgia Chronic pain, BLE PVD Hx of DVT Hx of PE Asthma Oxygen Dependence COPD PARAG with CPAP use CHF NIDDM Obesity HLD Hypoventilation Syndrome Referrals: curry goel [Other] - 1 Week Discharge Medications: New furosemide 40 mg Tablet 40 mg PO DAILY Qty: 0 0RF Protocol: Hold for SBP< HOLD for SBP < : 90 lamotrigine 25 mg Tablet 25 mg PO BEDTIME Qty: 30 0RF duloxetine 60 mg Capsule,Delayed Release(Dr/Ec) 60 mg PO DAILY Qty: 0 0RF Continued losartan 50 mg tablet 50 mg PO DAILY atorvastatin 40 mg tablet 40 mg PO QPM albuterol sulfate 2.5 mg /3 mL (0.083 %) solution for nebulization 2.5 mg inhalation meloxicam 15 mg tablet 15 mg PO DAILY famotidine 40 mg tablet 40 mg PO DAILY acetaminophen 500 mg tablet 500 mg PO lorazepam 0.5 mg tablet 0.5 mg PO BID montelukast 10 mg tablet 10 mg PO DAILY ergocalciferol (vitamin D2) 1,250 mcg (50,000 unit) capsule 1,250 mcg PO QWEEK polyethylene glycol 3350 [Gavilax] 17 gram/dose powder 17 g PO DAILY zolpidem 10 mg tablet 10 mg PO BEDTIME albuterol sulfate [Ventolin HFA] 90 mcg/actuation HFA aerosol inhaler 2 puff inhalation Q6H PRN (Reason: wheezing) fluticasone propionate 50 mcg/actuation spray,suspension 2 spray intranasal QAM tiotropium bromide [Spiriva with HandiHaler] 18 mcg capsule, w/inhalation device 1 cap inhalation DAILY mirtazapine 7.5 mg tablet 7.5 mg PO BEDTIME fluticasone propion-salmeterol [Advair HFA] 230-21 mcg/actuation HFA aerosol inhaler 2 puff INHALATION BID diclofenac sodium 1 % gel 1 ea topical Savella 50 mg tablet 50 mg PO BID Trulicity 4.5 mg/0.5 mL pen injector subcut Discontinued duloxetine 60 mg capsule,delayed release(DR/EC) 120 mg PO DAILY Ozempic 1 mg/dose (4 mg/3 mL) pen injector 1 mg subcut QWEEK Discharge Orders: Discharge Order (Routine); Ordered 07/27/23 Ordered By: Valentina Hodges Diet: Diabetic diet Activity on Discharge: elevate legs when you are able Stand Alone Forms: Patient Portal Discharge page, Community Support Care Plan Goals: Mood and Behavioral Stabilization Health Concerns: Mood and Behavioral Stabilization Health issues as noted above Plan of Treatment: Attend scheduled appointments. Daughter has scheduled these and declined assistance from care mgt team. Continue medications as you were prior to admission. ---Psychiatric medicine changes. 1. Cymbalta was decreased to 60 mg from 120 mg 2. Lamictal 25 mg at bedtime was added This has been a difficult admission for pt and family as pt reports she came for eval for pain and was told she would have a medical admission with psychiatric consultation. Pt, family and CP child care teacher, Mary Anne, requested transfer to [facility]. The psychiatric administrative team worked for three days attempting to arrange a transfer, but were declined by [facility] Stephanie Erickson and [facility]. Pt did not agree to admission to psychiatry she states and reports she feels her medical needs were not taken into consideration and thus has asked to leave. DaughterYuliana is in agreement, thus the discharge today. Assessment: Alert, oriented x 3. No SI, HI, sx of shukri, sx of psychosis. Not wanting to participate in psychiatric treatment given the above issues identified. Discharge Date/Time: 07/27/23 15:08
--- NOTE | 2023-07-27 18:55 | PM.EVENT ---
Event Note Date of Service: 07/27/23 Time Spent With Patient Time: Total time managing care of this patient today ____ minutes.
== END 2023-07-27 15:08 | disposition home or self-care (01) | DRG 754 ==
LOC: HO.ED 17:22 → HO.PM5 07-21 13:27
PROVIDERS: Physician Assistant; Admitting Provider Clinical Nurse Specialist Psychiatric/Mental Health, Adult; Emergency Provider Internal Medicine; Visit Provider Clinical Nurse Specialist Psychiatric/Mental Health, Adult
DX: F32.A Depression, unspecified (principal); Z99.81 Dependence on supplemental oxygen; E66.2 Morbid (severe) obesity with alveolar hypoventilation; E11.51 Type 2 diabetes mellitus with diabetic peripheral angiopathy without gangrene; J44.9 Chronic obstructive pulmonary disease, unspecified; M25.562 Pain in left knee; I87.8 Other specified disorders of veins; E78.5 Hyperlipidemia, unspecified; M25.561 Pain in right knee; Z20.822 Contact with and (suspected) exposure to COVID-19; Z86.718 Personal history of other venous thrombosis and embolism; Z68.44 Body mass index [BMI] 60.0-69.9, adult; Z79.51 Long term (current) use of inhaled steroids; Z79.85 Long-term (current) use of injectable non-insulin antidiabetic drugs; Z79.899 Other long term (current) drug therapy
CPT/HCPCS: 36415; 71045; 73562; 80053; 80061; 80143; 80179; 80307; 81003; 82607; 82746; 82947; 83036; 83735; 83880; 84439; 84443; 85025; 85610; 87635; 93005; 93970; 94640; 94660; 99285

== ENCOUNTER → 2023-07-20 16:23 | Outpatient (BNV) | payer OTHER, SELFPAY | PROVIDERS: Emergency Provider Internal Medicine; Visit Provider Internal Medicine Cardiovascular Disease | DX: R94.31 Abnormal electrocardiogram [ECG] [EKG] (principal) | CPT/HCPCS: 93010 ==

== ENCOUNTER → 2023-07-21 12:59 | Outpatient (BNV) | payer OTHER, SELFPAY | PROVIDERS: Admitting Provider Clinical Nurse Specialist Psychiatric/Mental Health, Adult; Emergency Provider Internal Medicine; Visit Provider Psychiatry & Neurology Psychiatry | DX: F33.2 Major depressive disorder, recurrent severe without psychotic features (principal) | CPT/HCPCS: 90792; 99232; 99238 ==